=== PATIENT | female | born 1950 | race Caucasian/White ===

== ENCOUNTER 2018-06-26 11:48 | Inpatient (IN) | payer OTHER, MEDICARE ==
[2018-06-26] MEDS ORDERED: ALBUTEROL SULFATE 0.083% NEB 2.5 MG/3 ML AMPUL NEB ONE ×2 (12:18→12:23)
--- NOTE | 2018-06-26 12:25 | ER Document Report ---
ED Respiratory Problem - General Stated Complaint: SHORTNESS OF BREATH Time Seen by Provider: 06/26/18 12:02 Mode of Arrival: Medic Information source: Patient Notes: Patient presents complaining of productive cough with yellow sputum for the past 2 days. Patient does have a history of COPD and reports a worsening of her symptoms. Patient does complain of chest tenderness only with coughing and deep inspiration. Patient denies any fever, nausea or vomiting. Patient does report recent air travel from [place] 3 weeks ago. Patient was evaluated on and given a burst of steroids as well as doxycycline for 10 days. - HPI Patient complains to provider of: COPD, Cough, Short of breath Onset: Other - 2 days Duration: Worse/persistent Quality of pain: Achy Pain Level: 3 Context: Hx COPD, Smoker Chest pain/discomfort: Center Sputum color: Yellow EMS treatments: Bronchodilators, Solumedrol Associated symptoms: Chest pain/discomfort, Cough, Short of breath, Wheezing. denies: Fever Similar symptoms previously: Yes Recently seen / treated by doctor: Yes - Related Data Allergies/Adverse Reactions: Penicillins Allergy (Verified 06/26/18 15:54) Past Medical History - General Information source: Patient - Social History Smoking Status: Current Every Day Smoker Frequency of alcohol use: None Drug Abuse: None Lives with: Family Family History: Reviewed & Not Pertinent - Past Medical History Cardiac Medical History: Reports: Hx Hypertension Pulmonary Medical History: Reports: Hx COPD Past Surgical History: Reports: Hx Section Review of Systems - Review of Systems Constitutional: Recent illness - Recent exacerbation of COPD. denies: Fever EENT: No symptoms reported Cardiovascular: Chest pain Respiratory: Cough, Short of breath, Sputum, Wheezing. denies: Hemoptysis Gastrointestinal: No symptoms reported. denies: Abdominal pain, Nausea, Vomiting Genitourinary: No symptoms reported Female Genitourinary: No symptoms reported Musculoskeletal: No symptoms reported. denies: Back pain Skin: No symptoms reported Hematologic/Lymphatic: No symptoms reported Neurological/Psychological: No symptoms reported Physical Exam - Vital signs Vitals: Resp Pulse Ox 23 H 91 L 06/26/18 12:03 06/26/18 12:03 - General General appearance: Alert In distress: Moderate - HEENT Head: Normocephalic, Atraumatic Eyes: Normal Conjunctiva: Normal Nasal: Normal Mouth/Lips: Normal Mucous membranes: Normal Neck: Normal, Supple. No: Lymphadenopathy - Respiratory Respiratory status: Labored, Tachypnea Chest status: Pain with cough, Pain with deep breathing Breath sounds: Productive cough, Rhonchi, Wheezing Chest palpation: Tender - Cardiovascular Rhythm: Tachycardia Heart sounds: S1 appreciated, S2 appreciated Murmur: No - Abdominal Inspection: Normal Distension: No distension Bowel sounds: Normal Tenderness: Nontender - Back Back: Normal, Nontender. No: CVA tenderness - Extremities General upper extremity: Normal inspection, Normal ROM General lower extremity: Normal inspection, Normal ROM - Neurological Neuro grossly intact: Yes Cognition: Normal Eleno Coma Scale Eye Opening: Spontaneous Eleno Coma Scale Verbal: Oriented Eleno Coma Scale Motor: Obeys Commands Eleno Coma Scale Total: 15 - Psychological Associated symptoms: Normal affect, Normal mood - Skin Skin Temperature: Warm Skin Moisture: Dry Skin Color: Normal Course - Re-evaluation Re-evalutation: 06/26/18 13:57 Patient with decreased effort of breathing although continues with diffuse wheezing bilaterally. Additional nebulizer treatment ordered. Patient tachycardia improved heart rate in the mid 90s with oxygen saturation 93% on 2 L at this time. Chest x-ray report reviewed. Concern for patient with treatment failure given most recent outpatient treatment of doxycycline that she finished just a few days ago. Patient also has too numerous of pills in her medication bottle of her prednisone 20 mg tablets, given the concern for possible missed dosing of her most recent steroid burst dosing that was prescribed on 06/15/2018. Consulted with hospitalist who agrees to accept the patient to [facility] services. - Vital Signs Vital signs: Temp Pulse Resp BP Pulse Ox 98 F 94 24 H 100/71 95 06/26/18 12:37 06/26/18 16:45 06/26/18 16:01 06/26/18 16:00 06/26/18 16:01 - Laboratory Result Diagrams: 06/26/18 12:20 06/26/18 12:20 Laboratory results interpreted by me: 06/26/18 06/26/18 06/26/18 12:20 12:20 12:20 WBC 14.3 H RDW 14.7 H Absolute Neutrophils 10.5 H Absolute Monocytes 1.7 H D-Dimer 0.84 H Sodium 131.7 L Chloride 89 L Carbon Dioxide 31 H Total Bilirubin 1.4 H Direct Bilirubin 0.7 H Total Protein 5.5 L Labs- Entire Visit 06/26/18 06/26/18 06/26/18 12:20 12:20 12:20 WBC 14.3 H RBC 4.37 Hgb 13.2 Hct 39.5 MCV 90 MCH 30.3 MCHC 33.5 RDW 14.7 H Plt Count 317 Seg Neutrophils % 73.7 Lymphocytes % 13.7 Monocytes % 11.9 Eosinophils % 0.4 Basophils % 0.3 Absolute Neutrophils 10.5 H Absolute Lymphocytes 2.0 Absolute Monocytes 1.7 H Absolute Eosinophils 0.1 Absolute Basophils 0.0 PT 12.1 INR 0.85 D-Dimer Carbonic Acid HCO3/H2CO3 Ratio ABG pH ABG pCO2 ABG pO2 ABG HCO3 ABG Total CO2 ABG O2 Saturation ABG Base Excess VBG pH VBG pCO2 VBG HCO3 VBG Base Excess FiO2 Sodium 131.7 L Potassium 4.3 Chloride 89 L Carbon Dioxide 31 H Anion Gap 12 BUN 18 Creatinine 0.87 Est GFR ( Amer) > 60 Est GFR (Non-Af Amer) > 60 Glucose 97 POC Glucose Lactic Acid Calcium 9.5 Magnesium 1.8 Total Bilirubin 1.4 H Direct Bilirubin 0.7 H Neonat Total Bilirubin Not Reportable Neonat Direct Bilirubin Not Reportable Neonat Indirect Bili Not Reportable AST 31 ALT 25 Alkaline Phosphatase 98 Creatine Kinase 66 CK-MB (CK-2) Troponin I Total Protein 5.5 L Albumin 3.6 06/26/18 06/26/18 06/26/18 12:20 12:20 12:20 WBC RBC Hgb Hct MCV MCH MCHC RDW Plt Count Seg Neutrophils % Lymphocytes % Monocytes % Eosinophils % Basophils % Absolute Neutrophils Absolute Lymphocytes Absolute Monocytes Absolute Eosinophils Absolute Basophils PT INR D-Dimer Carbonic Acid HCO3/H2CO3 Ratio ABG pH ABG pCO2 ABG pO2 ABG HCO3 ABG Total CO2 ABG O2 Saturation ABG Base Excess VBG pH 7.39 VBG pCO2 52.2 VBG HCO3 31.0 VBG Base Excess 4.8 FiO2 Sodium Potassium Chloride Carbon Dioxide Anion Gap BUN Creatinine Est GFR ( Amer) Est GFR (Non-Af Amer) Glucose POC Glucose Lactic Acid 1.8 Calcium Magnesium Total Bilirubin Direct Bilirubin Neonat Total Bilirubin Neonat Direct Bilirubin Neonat Indirect Bili AST ALT Alkaline Phosphatase Creatine Kinase CK-MB (CK-2) 2.02 Troponin I < 0.012 Total Protein Albumin 06/26/18 06/26/1806/26/18 12:20 12:47 15:27 WBC RBC Hgb Hct MCV MCH MCHC RDW Plt Count Seg Neutrophils % Lymphocytes % Monocytes % Eosinophils % Basophils % Absolute Neutrophils Absolute Lymphocytes Absolute Monocytes Absolute Eosinophils Absolute Basophils PT INR D-Dimer 0.84 H Carbonic Acid 1.18 HCO3/H2CO3 Ratio 23:1 ABG pH 7.48 H ABG pCO2 39.1 ABG pO2 37.3 L* ABG HCO3 28.2 H ABG Total CO2 29.4 H ABG O2 Saturation 75.1 L ABG Base Excess 4.4 VBG pH VBG pCO2 VBG HCO3 VBG Base Excess FiO2 2 L Sodium Potassium Chloride Carbon Dioxide Anion Gap BUN Creatinine Est GFR ( Amer) Est GFR (Non-Af Amer) Glucose POC Glucose 104 Lactic Acid Calcium Magnesium Total Bilirubin Direct Bilirubin Neonat Total Bilirubin Neonat Direct Bilirubin Neonat Indirect Bili AST ALT Alkaline Phosphatase Creatine Kinase CK-MB (CK-2) Troponin I Total Protein Albumin 06/26/18 06/26/18 17:15 17:20 WBC RBC Hgb Hct MCV MCH MCHC RDW Plt Count Seg Neutrophils % Lymphocytes % Monocytes % Eosinophils % Basophils % Absolute Neutrophils Absolute Lymphocytes Absolute Monocytes Absolute Eosinophils Absolute Basophils PT INR D-Dimer Carbonic Acid 1.31 HCO3/H2CO3 Ratio 21:1 ABG pH 7.43 ABG pCO2 43.5 ABG pO2 102.8 H ABG HCO3 28.0 H ABG Total CO2 29.3 H ABG O2 Saturation 97.8 ABG Base Excess 3.2 VBG pH VBG pCO2 VBG HCO3 VBG Base Excess FiO2 35% Sodium Potassium Chloride Carbon Dioxide Anion Gap BUN Creatinine Est GFR ( Amer) Est GFR (Non-Af Amer) Glucose POC Glucose Lactic Acid Calcium Magnesium Total Bilirubin Direct Bilirubin Neonat Total Bilirubin Neonat Direct Bilirubin Neonat Indirect Bili AST ALT Alkaline Phosphatase Creatine Kinase CK-MB (CK-2) Troponin I < 0.012 Total Protein Albumin - Diagnostic Test Radiology reviewed: Reports reviewed Discharge - Discharge Clinical Impression: COPD exacerbation Pneumonia Qualifiers: Pneumonia type: due to unspecified organism Laterality: right Lung location: lower lobe of lung Qualified Code(s): J18.1 - Lobar pneumonia, unspecified organism Dyspnea Qualifiers: Dyspnea type: unspecified Qualified Code(s): R06.00 - Dyspnea, unspecified Condition: Stable Disposition: ADMITTED OBSERVATION Admitting Provider: Hospitalist Unit Admitted: Medical Floor
[2018-06-26 12:38] LABS: ABSOLUTE EOSINOPHILS # (AUTO) 0.1 10^3/uL (0.0-0.6); ABSOLUTE MONOCYTES (AUTO) 1.7 10^3/uL (0.1-1.4); ABSOLUTE NEUT (AUTO) 10.5 10^3/uL (1.7-8.2); BASOPHILS % (AUTO) 0.3 % (0-2); EOSINOPHILS % (AUTO) 0.4 % (0-6); HEMATOCRIT 39.5 % (36.0-47.0); HEMOGLOBIN 13.2 g/dL (12.0-15.5); LYMPHOCYTES % (AUTO) 13.7 % (13-45); MEAN CORPUSCULAR HEMOGLOBIN 30.3 pg (27.0-33.4); MEAN CORPUSCULAR HGB CONC 33.5 g/dL (32.0-36.0); MEAN CORPUSCULAR VOLUME 90 fl (80-97); MONOCYTES % (AUTO) 11.9 % (3-13); PLATELET COUNT 317 10^3/uL (150-450); RED BLOOD COUNT 4.37 10^6/uL (3.72-5.28); RED CELL DISTRIBUTION WIDTH 14.7 % (11.5-14.0); SEGMENTED NEUTROPHILS % (AUTO) 73.7 % (42-78); TOTAL CELLS COUNTED % (AUTO) 100 %; WHITE BLOOD COUNT 14.3 10^3/uL (4.0-10.5)
[2018-06-26 12:42] LABS: VENOUS BLOOD BASE EXCESS 4.8 mmol/L; VENOUS BLOOD PCO2 52.2 mmHg (35-63); VENOUS BLOOD PH 7.39 (7.30-7.42)
[2018-06-26 12:44] LABS: INTERNATIONAL RATION (INR) 0.85; PROTHROMBIN TIME 12.1 SEC (11.4-15.4)
--- NOTE | 2018-06-26 12:47 | RADIOLOGY REPORT (SQ) ---
EXAM DESCRIPTION: CHEST SINGLE VIEW COMPLETED DATE/TIME: 06/26/2018 12:34 pm REASON FOR STUDY: bed 11 sepsis protocol COMPARISON: None. EXAM PARAMETERS: NUMBER OF VIEWS: One view. TECHNIQUE: Single frontal radiographic view of the chest acquired. RADIATION DOSE: NA LIMITATIONS: None. FINDINGS: LUNGS AND PLEURA: Minimal ill-defined patchy right basilar opacity. No dense consolidatio n. No significant pleural effusion. No pneumothorax. MEDIASTINUM AND HILAR STRUCTURES: No discrete mass. HEART AND VASCULAR STRUCTURES: Ectatic calcified thoracic aorta. Normal heart size. BONES: No acute findings. HARDWARE: None in the chest. OTHER: No other significant finding. IMPRESSION: Minimal patchy right basilar opacities, possibly developing infection. No additional evidence of acute intrathoracic process. TECHNICAL DOCUMENTATION: JOB ID: [id number] [employer]- All Rights Reserved Reading location - IP/workstation name: [email or web address]
[2018-06-26 13:01] LABS: ALANINE AMINOTRANSFERASE 25 U/L (9-52); ALBUMIN 3.6 g/dL (3.5-5.0); ALKALINE PHOSPHATASE 98 U/L (38-126); ANION GAP 12 (5-19); ASPARTATE AMINO TRANSFERASE 31 U/L (14-36); BILIRUBIN,DIRECT 0.7 mg/dL (0.0-0.4); BILIRUBIN,TOTAL 1.4 mg/dL (0.2-1.3); BLOOD UREA NITROGEN 18 mg/dL (7-20); CALCIUM 9.5 mg/dL (8.4-10.2); CARBON DIOXIDE 31 mmol/L (22-30); CHLORIDE 89 mmol/L (98-107); CREATINE KINASE 66 U/L (30-135); GLUCOSE 97 mg/dL (75-110); POTASSIUM 4.3 mmol/L (3.6-5.0); SODIUM 131.7 mmol/L (137-145); TOTAL PROTEIN 5.5 g/dL (6.3-8.2)
--- NOTE | 2018-06-26 13:10 | EKG REPORT ---
SEVERITY:- NORMAL ECG - SINUS RHYTHM : Confirmed by: Becky Mann MD 26-Jun-2018 13:08:43
[2018-06-26 13:13] LABS: CREATINE KINASE MB 2.02 ng/mL (<4.55)
[2018-06-26 13:15] LABS: TROPONIN I < 0.012 ng/mL
[2018-06-26] MEDS ORDERED: LEVOFLOXACIN 750 MG/D5W RTU 750 MG/150 ML RTUPB IV ONE (13:19)
[2018-06-26] MEDS ORDERED: IPRATROPIUM/ALBUTEROL 0.5-2.5 MG/3 ML AMPUL NEB ONE (13:52)
[2018-06-26] MEDS ORDERED: NORMAL SALINE 1000 ML 1,000 ML IV ONE (13:52)
[2018-06-26 16:01] LABS: ARTERIAL BLOOD BASE EXCESS 4.4 mmol/L; ARTERIAL BLOOD FIO2 2 L; ARTERIAL BLOOD H2CO3 1.18 mmol/L (1.05-1.35); ARTERIAL BLOOD HCO3 28.2 mmol/L (20-24); ARTERIAL BLOOD O2 SATURATION 75.1 % (94-98); ARTERIAL BLOOD PCO2 39.1 mmHg (35-45); ARTERIAL BLOOD PH 7.48 (7.35-7.45); ARTERIAL BLOOD TOTAL CO2 29.4 mmol/L (21-25)
[2018-06-26 16:03] LABS: ARTERIAL BLOOD PO2 37.3 mmHg (80-100)
[2018-06-26] MEDS ORDERED: LEVALBUTEROL HCL NEB 1.25 MG/3 ML AMPUL NEB PRN (16:03)
[2018-06-26] MEDS ORDERED: ACETAMINOPHEN 325 MG TABLET PO PRN (16:03)
[2018-06-26] MEDS: LORAZEPAM INJ 2 MG/1 ML VIAL IV PRN (16:38)
[2018-06-26] MEDS ORDERED: NICOTINE 14 MG/24 HR PATCH.TD24 TD PRN (17:33)
--- NOTE | 2018-06-26 17:35 | PDOC H&P ---
History of Present Illness Admission Date/PCP: 06/26/18 14:14 Patient complains of: shortness of breath, chest pain History of Present Illness: MITCHEL LANZA is a 67 year old female with a past medical history significant for hypertension, depression/anxiety, arthritis, and COPD who presented to the emergency department today with a complaint of 2 weeks of progressively worsening dyspnea. She reports that she saw an urgent care 1 week ago and was placed on doxycycline and prednisone. She has completed the course of therapy but has dramatically worsened in the last 48 hours. She now reports chest wall pain associated with deep breath, nonproductive cough, fatigue, air hunger/anxiety, and dyspnea while at rest. Evaluation in the emergency department found tachycardia (HR 110-120), tachypnea (RR 28), Sp02 91% on RA, accessory muscle use, tripoding, leukocytosis (WBC 14.3), normal troponin, EKG demonstrating NSR, CXR demonstrated RLL infiltrate. The patient was referred to the hospitalist service for admission and management of acute respiratory failure secondary to COPD exacerbation. Past Medical History Cardiac Medical History: Reports: Hypertension Pulmonary Medical History: Reports: Chronic Obstructive Pulmonary Disease (COPD) Denies: Intubation EENT Medical History: Reports: None Neurological Medical History: Reports: None Endocrine Medical History: Reports: None Renal/ Medical History: Reports: None Malignancy Medical History: Reports: None GI Medical History: Reports: None Musculoskeltal Medical History: Reports: Arthritis Skin Medical History: Reports: None Psychiatric Medical History: Reports: Depression, General Anxiety Disorder Traumatic Medical History: Reports: None Hematology: Reports: None Infectious Medical History: Reports: None Past Surgical History Past Surgical History: Reports: Section Social History Information Source: Patient Lives with: Friend Smoking Status: Current Some Day Smoker Cigarettes Packs Per Day: 0.5 Number of Years Smokin Frequency of Alcohol Use: Occasional Hx Recreational Drug Use: No Drugs: None Hx Prescription Drug Abuse: No - Advance Directive Resuscitation Status: Do Not Intubate Family History Family History: Reviewed & Not Pertinent Parental Family History Reviewed: Yes Children Family History Reviewed: Yes Sibling(s) Family History Reviewed.: Yes Medication/Allergy Home Medications: Albuterol Sulfate [Proair Hfa Inhalation Aerosol 8.5 gm Mdi] 1 puff IH Q4HP PRN 06/26/18 Amlodipine Besylate [Norvasc 5 mg Tablet] 5 mg PO DAILY 06/26/18 Aspirin [Ecotrin 81 mg EC Tablet] 81 mg PO DAILY 06/26/18 Budesonide/Formoterol Fumarate [Symbicort Hfa 160-4.5 Mcg Inhaler 6 gm] 1 puff IH Q12 06/26/18 Gabapentin [Neurontin 300 mg Capsule] 300 mg PO Q8 06/26/18 Melatonin [Melatonin 5 mg Tablet] 10 mg PO QHS 06/26/18 Meloxicam [Mobic] 7.5 mg PO DAILY 06/26/18 Prednisone [Deltasone 20 mg Tablet] 40 mg PO DAILY 06/26/18 Venlafaxine HCl ER [Effexor Xr 37.5 mg Cap.sr] 37.5 mg PO DAILY 06/26/18 Allergies/Adverse Reactions: Penicillins Allergy (Verified 06/26/18 15:54) Review of Systems Constitutional: PRESENT: fatigue, other - Myalgia. ABSENT: chills, fever(s), headache(s), weight gain, weight loss Eyes: ABSENT: visual disturbances Ears: ABSENT: hearing changes Cardiovascular: PRESENT: chest pain, dyspnea on exertion. ABSENT: edema, orthropnea, palpitations Respiratory: PRESENT: dyspnea. ABSENT: cough, hemoptysis Gastrointestinal: ABSENT: abdominal pain, constipation, diarrhea, hematemesis, hematochezia, nausea, vomiting Genitourinary: ABSENT: dysuria, hematuria Musculoskeletal: ABSENT: joint swelling Integumentary: ABSENT: rash, wounds Neurological: ABSENT: abnormal gait, abnormal speech, confusion, dizziness, focal weakness, syncope Psychiatric: ABSENT: anxiety, depression, homidical ideation, suicidal ideation Endocrine: ABSENT: cold intolerance, heat intolerance, polydipsia, polyuria Hematologic/Lymphatic: ABSENT: easy bleeding, easy bruising Physical Exam Vital Signs: Temp Pulse Resp BP Pulse Ox 98 F 24 H 100/71 95 06/26/18 12:37 06/26/18 16:01 06/26/18 16:00 06/26/18 16:01 Intake & Output 06/25/18 06/26/18 06/27/18 06:59 06:59 06:59 Intake Total 1150 Balance 1150 General appearance: PRESENT: mild distress, well-developed, well-nourished Head exam: PRESENT: atraumatic, normocephalic Eye exam: PRESENT: conjunctiva pink, EOMI, PERRLA. ABSENT: scleral icterus Ear exam: PRESENT: normal external ear exam Mouth exam: PRESENT: moist, tongue midline Teeth exam: PRESENT: edentulous - Dentures Neck exam: ABSENT: carotid bruit, JVD, lymphadenopathy, thyromegaly Respiratory exam: PRESENT: accessory muscle use, decreased breath sounds - Throughout, prolonged expiratory phas, rhonchi, tachypnea, wheezes. ABSENT: rales Cardiovascular exam: PRESENT: RRR, tachycardia. ABSENT: diastolic murmur, rubs , systolic murmur Pulses: PRESENT: normal dorsalis pedis pul Vascular exam: PRESENT: normal capillary refill GI/Abdominal exam: PRESENT: normal bowel sounds, soft. ABSENT: distended, guarding, mass, organolmegaly, rebound, tenderness Rectal exam: PRESENT: deferred Extremities exam: PRESENT: full ROM. ABSENT: calf tenderness, clubbing, pedal edema Neurological exam: PRESENT: alert, awake, oriented to person, oriented to place , oriented to time, oriented to situation, CN II-XII grossly intact. ABSENT: motor sensory deficit Psychiatric exam: PRESENT: anxious, appropriate affect, normal mood. ABSENT: homicidal ideation, suicidal ideation Skin exam: PRESENT: dry, intact, warm. ABSENT: cyanosis, rash Results Laboratory Results: 06/26/18 15:27 Carbonic Acid 1.18 HCO3/H2CO3 Ratio 23:1 ABG pH 7.48 H ABG pCO2 39.1 ABG pO2 37.3 L* ABG HCO3 28.2 H ABG O2 Saturation 75.1 L ABG Base Excess 4.4 FiO2 2 L Impressions: Chest X-Ray 06/26/18 11:56 IMPRESSION: Minimal patchy right basilar opacities, possibly developing infection. No additional evidence of acute intrathoracic process. Assessment & Plan - Diagnosis (1) Acute respiratory failure with hypoxia Is this a current diagnosis for this admission?: Yes Plan: The patient presented with acute respiratory failure with hypoxia; found to have SPO2 of 91% on room air. She is not typically home O2 dependent. ABG while on supplemental oxygen is worrisome for respiratory alkalosis with significant hypoxia; PaO2 37.3. CXR demonstrates a RLL infiltrate. D-dimer is elevated. Influenza pending. Blood and sputum cultures are pending. CTA of the chest is pending. We will trend troponins. The patient is admitted to telemetry. She is provided supplemental oxygen as needed to maintain oxygen saturations. Spoke with nursing, to place BiPAP now and repeat ABG after 45 minutes. She is provided scheduled and as needed nebulizer treatments. IV Solu-Medrol. Mucinex twice daily. Placed on IV Cipro as she has failed outpatient doxycycline. Flutter valve to bedside. (2) Atypical chest pain Is this a current diagnosis for this admission?: Yes Plan: Pleurisy secondary to increased work of breathing/cough versus pulmonary embolus versus ACS. The patient reports chest "heaviness" that worsens with deep breath and inspiration. She states that the discomfort has been present for 2-3 days. No alleviating factors. She denies cardiac history, risk factors include age, weight, hypertension, tobacco dependence. Initial troponin is negative. EKG demonstrated sinus rhythm without acute changes. D-dimer is elevated. CT of the chest is pending. We will trend troponins. Analgesics as needed. (3) D-dimer, elevated Is this a current diagnosis for this admission?: Yes Plan: D-dimer elevated 0.84 Of note, [place] 2 [place] ago. She began having symptoms 10 days ago of shortness of breath with activity that have progressively worsened. No peripheral/dependent edema. Will obtain CTA of the chest rule out PE. (4) Tobacco abuse Is this a current diagnosis for this admission?: Yes Plan: Smoking cessation is encouraged. Nicotine replacement therapies are provided. (5) COPD exacerbation Is this a current diagnosis for this admission?: Yes Plan: Plan as above. (6) Pneumonia Qualifiers: Pneumonia type: due to unspecified organism Laterality: right Lung location: lower lobe of lung Qualified Code(s): J18.1 - Lobar pneumonia, unspecified organism Is this a current diagnosis for this admission?: Yes Plan: Blood and sputum cultures are pending. Influenza is pending. She is placed on IV Cipro as she has just completed an outpatient course of doxycycline. - Time Time Spent: 50 to 70 Minutes Medications reviewed and adjusted accordingly: Yes Anticipated discharge: Home
[2018-06-26 17:40] LABS: ARTERIAL BLOOD BASE EXCESS 3.2 mmol/L; ARTERIAL BLOOD H2CO3 1.31 mmol/L (1.05-1.35); ARTERIAL BLOOD O2 SATURATION 97.8 % (94-98); ARTERIAL BLOOD PCO2 43.5 mmHg (35-45); ARTERIAL BLOOD PH 7.43 (7.35-7.45); ARTERIAL BLOOD PO2 102.8 mmHg (80-100); ARTERIAL BLOOD TOTAL CO2 29.3 mmol/L (21-25)
[2018-06-26 17:41] LABS: ARTERIAL BLOOD FIO2 35%
--- NOTE | 2018-06-26 22:05 | RADIOLOGY REPORT (SQ) ---
EXAM DESCRIPTION: CT CHEST ANGIOGRAPHY WITHOUT THEN WITH IV CONTRAST COMPLETED DATE/TME: 06/26/2018 00:00 CLINICAL HISTORY: 67 years, Female, hypoxia, tachypnea, tachycardia ? PE COMPARISON: None. TECHNIQUE: 547 Images stored on PACS. All CT scanners at this facility use dose modulation, iterative reconstruction, and/or weight based dosing when appropriate to reduce radiation dose to as low as reasonably achievable (ALARA). Axial images were obtained with coronal and sagittal MIPS reconstructions performed on a dedicated workstation. [facility]: Dose Right [facility]: CareDose [facility]: Dose Right [facility]: Teradose 4D [facility]: B[employer]Good LIMITATIONS: None. FINDINGS: Suboptimal contrast bolus limits the exam. Suboptimal opacification of distal arterial branches. However as visualized no intraluminal filling defect to suggest pulmonary embolus. Negative for thoracic aortic aneurysm or dissection. No mediastinal or hilar adenopathy. Mild atheromatous change and ectasia of the thoracic aorta. Maximal diameter of the ascending thoracic aorta is 3.8 cm AP by 3.8 cm transverse, at the level of the pulmonary trunk. Coronary artery calcifications are present. The heart and pericardium are otherwise unremarkable. Post surgical changes in the upper abdomen with LAP-BAND of the stomach. Subcentimeter hypodensity in the liver, likely tiny cyst or hemangioma in the absence of cancer history. Subcentimeter left renal cyst also noted. Osseous structures are grossly intact. No pneumothorax. The visualized airways are patent. There are patchy groundglass opacities bilaterally as well as nodular/reticulonodular changes. The largest nodular component in the left upper lobe measures 4.8 mm. This has a predominantly groundglass appearance. No effusion. IMPRESSION: Negative for pulmonary embolus, thoracic aortic aneurysm, or dissection. Groundglass opacities bilaterally with nodular/reticulonodular changes suggestive of bilateral pneumonitis. Recommend follow-up to ensure resolution. Please refer to below Fleischner Society criteria for further evaluation of the nodular component. Atheromatous change and ectasia of the ascending thoracic aorta. Coronary artery calcification. Probable hepatic cyst/hemangioma. Partial visualization of a left renal cyst. 2017 Fleischner Society Recommendations for Multiple Solid Lung Nodules Follow-Up base on size (average of long- and short-axis diameters). Use most suspicious nodule for followup. Nodule Size <6 mm Low-Risk Patient: No routine follow-up Nodule Size <6 mm High-Risk Patient: Optional CT at 12 months Nodule Size 6-8 mm Low-Risk Patient: CT at 3-[address] at 18-24 months Nodule Size 6-8 mm High-Risk Patient: CT at 3-6 months then at 18-24 months Nodule Size (mm) >8 Low-Risk Patient: CT at 3-6 months, then consider CT at 18-24 months Nodule Size (mm) >8 High-Risk Patient: CT at 3-6 months, then at 18-24 months TECHNICAL DOCUMENTATION: Quality ID # [id number]: Final reports with documentation of one or more dose reduction techniques (e.g., Automated exposure control, adjustment of the mA and/or kV according to patient size, use of iterative reconstruction technique) copyright 2011 [employer]- All Rights Reserved
[2018-06-26] MEDS: GABAPENTIN 300 MG CAPSULE PO SCH (22:09)
[2018-06-26] MEDS: MELATONIN 5 MG TABLET PO SCH (22:09)
[2018-06-26] MEDS: CIPROFLOXACIN 400 MG/D5W RTU 400 MG/200 ML RTUPB IV SCH (22:09)
[2018-06-26] MEDS: FAMOTIDINE 20 MG TABLET PO SCH (22:09)
[2018-06-26] MEDS: METHYLPREDNISOLONE INJ 40 MG/1 ML SDV IV SCH (22:09)
[2018-06-26] MEDS: GUAIFENESIN 600 MG TABLET.SA PO SCH (22:09)
[2018-06-26] MEDS: HEPARIN SOD (PORCINE) 5,000 UNIT/ML 1 ML SYRINGE SUBCUT SCH (22:10)
[2018-06-26 22:41] LABS: APPEARANCE,URINE CLEAR; BILIRUBIN,URINE NEGATIVE (NEGATIVE); COLOR,URINE YELLOW; GLUCOSE, URINE NEGATIVE (NEGATIVE); KETONES,URINE NEGATIVE (NEGATIVE); LEUKOCYTE ESTERASE,URINE NEGATIVE (NEGATIVE); NITRITE,URINE NEGATIVE (NEGATIVE); PROTEIN,URINE NEGATIVE (NEGATIVE); UROBILINOGEN,URINE NEGATIVE mg/dL (<2.0)
[2018-06-26 22:57] LABS: A TYPE INFLUENZA AG NEGATIVE (NEGATIVE); B INFLUENZA AG NEGATIVE (NEGATIVE)
[2018-06-27] MEDS: IPRATROPIUM/ALBUTEROL 0.5-2.5 MG/3 ML AMPUL NEB SCH ×3 (00:28→15:44)
[2018-06-27] MEDS: GABAPENTIN 300 MG CAPSULE PO SCH ×3 (05:35→21:17)
[2018-06-27] MEDS: METHYLPREDNISOLONE INJ 40 MG/1 ML SDV IV SCH ×3 (05:35→21:18)
[2018-06-27] MEDS: HEPARIN SOD (PORCINE) 5,000 UNIT/ML 1 ML SYRINGE SUBCUT SCH ×3 (05:35→21:18)
[2018-06-27 06:30] LABS: ABSOLUTE LYMPHOCYTES (AUTO) 0.7 10^3/uL (0.5-4.7); ABSOLUTE MONOCYTES (AUTO) 0.4 10^3/uL (0.1-1.4); ABSOLUTE NEUT (AUTO) 9.2 10^3/uL (1.7-8.2); BASOPHILS % (AUTO) 0.4 % (0-2); HEMATOCRIT 35.9 % (36.0-47.0); HEMOGLOBIN 12.2 g/dL (12.0-15.5); LYMPHOCYTES % (AUTO) 6.5 % (13-45); MEAN CORPUSCULAR HEMOGLOBIN 30.6 pg (27.0-33.4); MEAN CORPUSCULAR HGB CONC 34.1 g/dL (32.0-36.0); MEAN CORPUSCULAR VOLUME 90 fl (80-97); MONOCYTES % (AUTO) 3.9 % (3-13); PLATELET COUNT 284 10^3/uL (150-450); RED BLOOD COUNT 3.99 10^6/uL (3.72-5.28); RED CELL DISTRIBUTION WIDTH 14.8 % (11.5-14.0); SEGMENTED NEUTROPHILS % (AUTO) 89.2 % (42-78); TOTAL CELLS COUNTED % (AUTO) 100 %; WHITE BLOOD COUNT 10.3 10^3/uL (4.0-10.5)
[2018-06-27 06:53] LABS: ANION GAP 11 (5-19); BLOOD UREA NITROGEN 22 mg/dL (7-20); CALCIUM 9.5 mg/dL (8.4-10.2); CARBON DIOXIDE 26 mmol/L (22-30); CHLORIDE 94 mmol/L (98-107); GLUCOSE 136 mg/dL (75-110); POTASSIUM 4.7 mmol/L (3.6-5.0); SODIUM 131.1 mmol/L (137-145)
[2018-06-27] MEDS: ASPIRIN 81 MG TABLET, ENT COATED PO SCH (09:29)
[2018-06-27] MEDS: CIPROFLOXACIN 400 MG/D5W RTU 400 MG/200 ML RTUPB IV SCH ×2 (09:29→21:17)
[2018-06-27] MEDS: MELOXICAM 7.5 MG TABLET PO SCH (09:30)
[2018-06-27] MEDS: GUAIFENESIN 600 MG TABLET.SA PO SCH ×2 (09:30→21:17)
[2018-06-27] MEDS: FAMOTIDINE 20 MG TABLET PO SCH ×2 (09:30→21:17)
[2018-06-27] MEDS: VENLAFAXINE HCL 37.5 MG CAP.SR.24H PO SCH (09:30)
[2018-06-27] MEDS: AMLODIPINE BESYLATE 5 MG TABLET PO SCH (09:30)
[2018-06-27] MEDS: LORAZEPAM INJ 2 MG/1 ML VIAL IV PRN ×2 (09:30→21:33)
--- NOTE | 2018-06-27 14:08 | PROGRESS NOTE E ---
Progress Note NAME: MITCHEL LANZA : 1950 AGE: 67Y DATE: 06/27/2018 ROOM: 534 SUBJECTIVE: Patient is currently sitting on the side of the bed. She states she feels okay today. Patient does have some conversational dyspnea. The patient did require BiPAP this morning because she stated that she just felt she could not catch her breath. Patient is currently on 2.5 liters and oxygenating at 92% on that. The patient denies any nausea, vomiting, no dizziness, chest pain, no fevers, chills. The patient has been afebrile. Blood pressures in good range. Patient did not voice any other concerns. REVIEW OF SYSTEMS: The rest of the review of systems is negative. MEDICATIONS: Reviewed. OBJECTIVE: GENERAL: The patient is a 67-year-old female who is awake, alert. She is oriented to person, place, time and situation. She is verbal and conversational. In no acute distress. VITAL SIGNS: Temperature is 98.0, pulse 72, respirations 24, blood pressure 151/84. Oxygen saturation is 96% on room air. SKIN: Warm, dry. No rashes. Not diaphoretic. HEENT: Pupils reactive. No evidence of JVP. CVS: Heart is regular. No rub. CHEST: Patient does have bilateral expiratory wheezes, especially in the upper lung gary. Overall diminished throughout. Prolonged expiratory phase. ABDOMEN: Soft, nontender. EXTREMITIES: No clubbing, cyanosis or edema. PSYCHIATRIC: Appropriate affect. Pleasant mood. DIAGNOSTICS: Lab values are as follows: Hematology obtained on 06/27/2018: WBCs are 10.3, hemoglobin is 12.2, hematocrit is 35.9, platelet count is 284,000. Chemistry obtained on 06/27/2018: Sodium is 131, potassium 4.7, chloride is 94, carbon dioxide is 26, BUN 22, creatinine 0.8, glucose 136. Calcium is 9.5. IMPRESSION AND PLAN: 1. CHRONIC OBSTRUCTIVE PULMONARY DISEASE EXACERBATION. Will continue steroids. The patient has made some improvement. She is unable to tolerate nasal cannula but still has conversational dyspnea. We will follow. 2. ACUTE ON CHRONIC HYPOXEMIC RESPIRATORY FAILURE. We will continue supplemental O2. 3. TOBACCO DEPENDENCE, CONTINUOUS. Spent 3 minutes discussing smoking cessation and education. Patient declines any pharmacological intervention at this time. 4. ATYPICAL CHEST PAIN. The patient has had 3 sets of cardiac enzymes and this has resolved with bronchodilators. DISPOSITION: The patient is a DO NOT INTUBATE. Pending patient's symptomatology and diagnostic findings, will reevaluate in the a.m. Time spent on this followup, including assessment, plan, physical examination, patient education and review of records is 20minutes. DICTATING PHYSICIAN: JAXON MEDLEY NP [id number] PHY#: [id number] ID: [id number] JOB#: [id number] ACCT: [id number] cc: >
[2018-06-27] MEDS ORDERED: LORAZEPAM INJ 2 MG/1 ML VIAL IV ONE (15:20)
[2018-06-27] MEDS: MELATONIN 5 MG TABLET PO SCH (21:17)
[2018-06-27] MEDS: BUDESONIDE/FORMOTEROL 160-4.5 MCG 60 PUFF/6 GM MDI IH SCH (21:17)
[2018-06-28] MEDS: IPRATROPIUM/ALBUTEROL 0.5-2.5 MG/3 ML AMPUL NEB SCH ×4 (00:08→23:48)
[2018-06-28] MEDS: GABAPENTIN 300 MG CAPSULE PO SCH ×3 (05:03→21:01)
[2018-06-28] MEDS: METHYLPREDNISOLONE INJ 40 MG/1 ML SDV IV SCH (05:03)
[2018-06-28] MEDS: HEPARIN SOD (PORCINE) 5,000 UNIT/ML 1 ML SYRINGE SUBCUT SCH ×3 (05:03→21:01)
[2018-06-28] MEDS: LORAZEPAM INJ 2 MG/1 ML VIAL IV PRN ×3 (05:04→23:58)
[2018-06-28] MEDS ORDERED: MONTELUKAST SODIUM 10 MG TABLET PO ONE (08:23)
[2018-06-28] MEDS: GUAIFENESIN 600 MG TABLET.SA PO SCH ×2 (09:43→21:01)
[2018-06-28] MEDS: PREDNISONE 20 MG TABLET PO SCH ×2 (09:44→17:08)
[2018-06-28] MEDS: BUSPIRONE HCL 10 MG TABLET PO SCH ×2 (09:45→21:02)
[2018-06-28] MEDS: AMLODIPINE BESYLATE 5 MG TABLET PO SCH (09:45)
[2018-06-28] MEDS: ASPIRIN 81 MG TABLET, ENT COATED PO SCH (09:46)
[2018-06-28] MEDS: FAMOTIDINE 20 MG TABLET PO SCH ×2 (09:46→21:02)
[2018-06-28] MEDS: MELOXICAM 7.5 MG TABLET PO SCH (09:46)
[2018-06-28] MEDS: VENLAFAXINE HCL 37.5 MG CAP.SR.24H PO SCH (09:46)
[2018-06-28] MEDS: BUDESONIDE/FORMOTEROL 160-4.5 MCG 60 PUFF/6 GM MDI IH SCH ×2 (09:46→21:01)
[2018-06-28] MEDS: DOXYCYCLINE HYCLATE 100 MG TABLET PO SCH ×2 (09:47→21:02)
[2018-06-28] MEDS ORDERED: BUSPIRONE HCL 10 MG TABLET PO SCH (10:00)
--- NOTE | 2018-06-28 13:17 | PROGRESS NOTE E ---
Progress Note NAME: MITCHEL LANZA : 1950 AGE: 67Y DATE: 06/28/2018 ROOM: 534 SUBJECTIVE: The patient is lying in bed. The patient was found to be dyspneic this morning. The patient states that this is more anxiety than her not being able to breathe. The patient has had a strong cough and has been able to produce some sputum. The patient has not been using her flutter valve. The patient denies any nausea, vomiting, diarrhea. No dizziness, chest pain. No fevers, no chills. Patient has been afebrile. Blood pressure has been in good range, and the patient does not voice any other concerns at this time. REVIEW OF SYSTEMS: The rest of the review of systems is negative. MEDICATIONS: Reviewed. OBJECTIVE: GENERAL: The patient is a 67-year-old female, who is awake, alert and oriented to person, place, time and situation. She is verbal and conversational. Does not appear to be distressed. VITAL SIGNS: Temperature is 98.4, pulse 87, respirations 19, blood pressure is 133/60, oxygen saturation is 98% on 30% FiO2 on BiPAP. SKIN: Warm and dry. No rash. Not diaphoretic. HEENT: Her pupils are reactive. Conjunctivae pink. There is no evidence of JVP. CVS: Heart is regular, no rub. CHEST: Patient does have some rhonchorous lung sounds in left lung field. Expiratory wheezes noted throughout. ABDOMEN: Soft, nontender. EXTREMITIES: There is no clubbing, cyanosis or edema. PSYCHIATRIC: The patient appears extremely anxious. DIAGNOSTICS: Lab values are as follows: Hematology obtained on 06/27/2018: WBC 10.3, hemoglobin is 12.4, hematocrit 35.9, platelet count is 284,000. Chemistry obtained on 06/27/2018: Sodium is 131, potassium 4.7, chloride is 94, carbon dioxide 26, BUN 22, creatinine is 0.8, glucose 136, calcium is 9.5. IMPRESSION AND PLAN: 1. CHRONIC OBSTRUCTIVE PULMONARY DISEASE EXACERBATION. Will continue with steroids. The patient is actually requiring BiPAP. Still has some conversational dyspnea. Will follow. 2. ACUTE ON CHRONIC HYPOXEMIC RESPIRATORY FAILURE. Will continue supplemental O2. Patient did need the BiPAP overnight. 3. TOBACCO DEPENDENCY, CONTINUOUS. Continue p.r.n. nicotine patch. 4. ATYPICAL CHEST PAIN. Resolved. Three sets of negative enzymes. Continue bronchodilators. 5. ANXIETY. The patient has significant anxiety, most likely associated with her underlying baseline of PITA, as well as situational, given the recent of her son. The patient does currently take Effexor, which can make this a little worse; however, the patient overall likes Effexor. Will add BuSpar and monitor. DISPOSITION: The patient is a DO NOT INTUBATE. Pending patient's symptomatology and diagnostic findings, will reevaluate in the a.m. Time spent on this followup, including assessment, plan, physical examination, patient education and review of records, was 25 minutes. DICTATING PHYSICIAN: JAXON MEDLEY NP [id number] PHY#: [id number] ID: [id number] JOB#: [id number] ACCT: [id number] cc: >
[2018-06-28] MEDS: MELATONIN 5 MG TABLET PO SCH (21:02)
[2018-06-28] MEDS: MONTELUKAST SODIUM 10 MG TABLET PO SCH (21:06)
[2018-06-29] MEDS: HEPARIN SOD (PORCINE) 5,000 UNIT/ML 1 ML SYRINGE SUBCUT SCH ×2 (05:56→14:16)
[2018-06-29] MEDS: GABAPENTIN 300 MG CAPSULE PO SCH ×2 (05:56→14:17)
[2018-06-29] MEDS: LORAZEPAM INJ 2 MG/1 ML VIAL IV PRN ×2 (05:58→11:58)
[2018-06-29] MEDS: IPRATROPIUM/ALBUTEROL 0.5-2.5 MG/3 ML AMPUL NEB SCH ×3 (08:17→23:52)
[2018-06-29] MEDS: VENLAFAXINE HCL 37.5 MG CAP.SR.24H PO SCH (10:03)
[2018-06-29] MEDS: PREDNISONE 20 MG TABLET PO SCH ×2 (10:03→18:00)
[2018-06-29] MEDS: MELOXICAM 7.5 MG TABLET PO SCH (10:03)
[2018-06-29] MEDS: DOXYCYCLINE HYCLATE 100 MG TABLET PO SCH (10:04)
[2018-06-29] MEDS: ASPIRIN 81 MG TABLET, ENT COATED PO SCH (10:04)
[2018-06-29] MEDS: GUAIFENESIN 600 MG TABLET.SA PO SCH (10:04)
[2018-06-29] MEDS: BUDESONIDE/FORMOTEROL 160-4.5 MCG 60 PUFF/6 GM MDI IH SCH (10:05)
[2018-06-29] MEDS: AMLODIPINE BESYLATE 5 MG TABLET PO SCH (10:05)
[2018-06-29] MEDS: BUSPIRONE HCL 10 MG TABLET PO SCH (10:05)
[2018-06-29] MEDS: FAMOTIDINE 20 MG TABLET PO SCH (10:05)
[2018-06-29 11:42] LABS: HEMATOCRIT 35.2 % (36.0-47.0); HEMOGLOBIN 11.9 g/dL (12.0-15.5); MEAN CORPUSCULAR HEMOGLOBIN 30.4 pg (27.0-33.4); MEAN CORPUSCULAR HGB CONC 33.9 g/dL (32.0-36.0); MEAN CORPUSCULAR VOLUME 90 fl (80-97); PLATELET COUNT 313 10^3/uL (150-450); RED BLOOD COUNT 3.93 10^6/uL (3.72-5.28); RED CELL DISTRIBUTION WIDTH 14.6 % (11.5-14.0); WHITE BLOOD COUNT 12.4 10^3/uL (4.0-10.5)
--- NOTE | 2018-06-29 11:52 | RADIOLOGY REPORT (SQ) ---
EXAM DESCRIPTION: CHEST SINGLE VIEW COMPLETED DATE/TIME: 06/29/2018 11:00 am REASON FOR STUDY: Hypoxia, tachypnea COMPARISON: None. EXAM PARAMETERS: NUMBER OF VIEWS: One view. TECHNIQUE: Single frontal radiographic view of the chest acquired. RADIATION DOSE: NA LIMITATIONS: None. FINDINGS: LUNGS AND PLEURA: No opacities, masses or pneumothorax. No pleural effusion. MEDIASTINUM AND HILAR STRUCTURES: No masses. Contour normal. HEART AND VASCULAR STRUCTURES: Heart normal in size. Normal vasculature. BONES: No acute findings. HARDWARE: None in the chest. OTHER: No other significant finding. IMPRESSION: NO ACUTE RADIOGRAPHIC FINDING IN THE CHEST. TECHNICAL DOCUMENTATION: JOB ID: [id number] [employer]- All Rights Reserved Reading location - IP/workstation name: [email or web address]
[2018-06-29] MEDS: TRAMADOL HCL 50 MG TABLET PO PRN (11:59)
[2018-06-29] MEDS ORDERED: CEFAZOLIN 2 GM/D5W RTU 2 GM/50 ML RTUPB IV SCH (12:00)
[2018-06-29 12:02] LABS: ALANINE AMINOTRANSFERASE 17 U/L (9-52); ALBUMIN 3.2 g/dL (3.5-5.0); ALKALINE PHOSPHATASE 62 U/L (38-126); ANION GAP 10 (5-19); ASPARTATE AMINO TRANSFERASE 25 U/L (14-36); BILIRUBIN,DIRECT 0.4 mg/dL (0.0-0.4); BILIRUBIN,TOTAL 0.4 mg/dL (0.2-1.3); BLOOD UREA NITROGEN 33 mg/dL (7-20); CALCIUM 9.3 mg/dL (8.4-10.2); CARBON DIOXIDE 30 mmol/L (22-30); CHLORIDE 91 mmol/L (98-107); GLUCOSE 105 mg/dL (75-110); POTASSIUM 5.1 mmol/L (3.6-5.0); TOTAL PROTEIN 5.5 g/dL (6.3-8.2)
[2018-06-29] MEDS: CEFEPIME 2 GM/D5W RTU 2 GM/50 ML RTUPB IV SCH (13:00)
[2018-06-29 19:11] LABS: ARTERIAL BLOOD BASE EXCESS 5.1 mmol/L; ARTERIAL BLOOD H2CO3 2.09 mmol/L (1.05-1.35); ARTERIAL BLOOD HCO3 33.6 mmol/L (20-24); ARTERIAL BLOOD O2 SATURATION 96.1 % (94-98); ARTERIAL BLOOD PO2 93.1 mmHg (80-100); ARTERIAL BLOOD TOTAL CO2 35.8 mmol/L (21-25)
--- NOTE | 2018-06-29 19:18 | XCELERA REPORT ---
[address] [address] Transthoracic Echocardiogram Report Name: MITCHEL LANZA Age: 67 yrs Gender: Female : 1950 Patient Status: In[facility] Date: 06/29/2018 02:33 PM Height: 64 in Weight: 169 lb BSA: 1.8 m2 Procedure: A two-dimensional transthoracic echocardiogram with color flow and Doppler was performed. The study was technically difficult with many images being suboptimal in quality. Reason For Study: Dyspnea, chest pain, recent loss History: Dyspnea, chest pain,. Ordering Physician: JAXON MEDLEY Performed By: Sergio Gorman Interpretation Summary The left ventricle is normal in size. There is normal left ventricular wall thickness. LV EF is 65% Left ventricular systolic function is normal. LV diastolic function not assessed. The left ventricular wall motion is normal. There is no thrombus. There is no ventricular septal defect visualized. The right ventricle is normal in size and function. The right atrium is normal. The left atrial size is normal. The interatrial septum is intact with no evidence for an atrial septal defect. There is no Doppler evidence for an interatrial shunt There is no evidence of mitral valve prolapse. There is no vegetation seen on the mitral valve. There is no mitral valve stenosis. There is a trace to mild amount of mitral regurgitation There is no aortic valvular vegetation. There is mild aortic stenosis There is a peak gradient of 19 mm of Hg. There is no LVOT obstruction. No hemodynamically significant valvular aortic stenosis. No aortic regurgitation is present. There is no tricuspid stenosis. There is a moderate amount of tricuspid regurgitation There is moderate to severe pulmonary hypertension by echo RVSP is 59 to 64 mm of Hg , with RA mean of 5 to 10. There is no pulmonic valvular stenosis. There is no pulmonic valvular regurgitation. The aortic root is not well visualized but is probably normal size. The inferior vena cava appeared normal and decreased > 50% with respiration (RAP 5-10 mmHg) There is no pericardial effusion. MMode/2D Measurements & Calculations RVDd: 2.5 cm LVIDd: 4.9 cm FS: 27.5 % Ao root diam: 2.7 cm IVSd: 0.80 cm LVIDs: 3.6 cm EDV(Teich): 113.4 ml Ao root area: 5.9 cm2 LVPWd: 0.95 cm ESV(Teich): 53.0 ml LA dimension: 3.8 cm EF(Teich): 53.2 % Doppler Measurements & Calculations MV E max robbie: MV P1/2t max robbie: Ao V2 max: LV V1 max P.0 cm/sec 88.1 cm/sec 216.3 cm/sec 6.1 mmHg MV A max robbie: MV P1/2t: 87.1 msec Ao max PG: LV V1 max: 99.3 cm/sec MVA(P1/2t): 2.5 cm2 18.7 mmHg 123.4 cm/sec MV E/A: 1.0 MV dec slope: 296.2 cm/sec2 MV dec time: 0.18 sec PA V2 max: TR max robbie: MV P1/2t-pr_phl: 160.4 cm/sec 364.9 cm/sec 87.1 msec PA max PG: TR max P.2 mmHg 10.3 mmHg Left Ventricle The left ventricle is normal in size. There is normal left ventricular wall thickness. LV EF is 65%. Left ventricular systolic function is normal. LV diastolic function not assessed. The left ventricular wall motion is normal. There is no thrombus. There is no ventricular septal defect visualized. Right Ventricle The right ventricle is normal in size and function. Atria The right atrium is normal. The left atrial size is normal. The interatrial septum is intact with no evidence for an atrial septal defect. There is no Doppler evidence for an interatrial shunt. Mitral Valve There is no evidence of mitral valve prolapse. There is no vegetation seen on the mitral valve. There is no mitral valve stenosis. There is a trace to mild amount of mitral regurgitation. Aortic Valve There is no aortic valvular vegetation. There is mild aortic stenosis. There is a peak gradient of 19 mm of Hg. There is no LVOT obstruction. No hemodynamically significant valvular aortic stenosis. No aortic regurgitation is present. Tricuspid Valve There is no tricuspid stenosis. There is a moderate amount of tricuspid regurgitation. There is moderate to severe pulmonary hypertension by echo. RVSP is 59 to 64 mm of Hg , with RA mean of 5 to 10. Pulmonic Valve There is no pulmonic valvular stenosis. There is no pulmonic valvular regurgitation. Great Vessels The aortic root is not well visualized but is probably normal size. The inferior vena cava appeared normal and decreased > 50% with respiration (RAP 5-10 mmHg). Effusions There is no pericardial effusion. : JAXON MEDLEY > Becky Mann
[2018-06-29 19:29] LABS: ARTERIAL BLOOD FIO2 2LNC; ARTERIAL BLOOD PCO2 69.6 mmHg (35-45)
[2018-06-29] MEDS: DIAZEPAM INJ 10 MG/2 ML DISP.SYRIN IV PRN (20:21)
[2018-06-29] MEDS: GUAIFENESIN SYRP 200 MG/10 ML UDC PO PRN (20:21)
--- NOTE | 2018-06-29 21:12 | PROGRESS NOTE E ---
Progress Note NAME: MITCHEL LANZA : 1950 AGE: 67Y DATE: 06/29/2018 ROOM: 534 SUBJECTIVE: The patient is lying in bed. She states that she feels about the same as she did yesterday. The patient was found to have significant tachypnea. Therefore, did order a stat chest x-ray, chemistry, CBC, and blood gas. The patient's chest x-ray was clear and the patient's chemistries were essentially unremarkable. The patient did have a mild white count which was consistent with her steroids. No fevers. The patient has been unable to produce any sputum throughout the day. Her sputum culture actually revealed no growth, and gases are pending. The patient states that she has not had much improvement with her anxiety medication. REVIEW OF SYSTEMS: The rest of the review of systems is negative. MEDICATIONS: Reviewed. OBJECTIVE: GENERAL: The patient is a 67-year-old female who is awake and alert. She is oriented to person, place, time, and situation. She is verbal, conversational. Does appear acutely tachypneic. Does appear to be in some mild distress. VITAL SIGNS: Temperature 98.4, pulse 94, respirations 26, blood pressure 131/65, oxygen saturation is 94% on 3 liters nasal cannula. SKIN: Warm and dry, no rashes, not diaphoretic. HEENT: Pupils are reactive. Conjunctivae pink. No evidence of JVP. CVS: Heart is tachycardic. There is no rub. CHEST: Diminished. The patient does have some rhonchorous breath sounds in the upper lung gary. Symmetrical, mildly labored. ABDOMEN: Soft, nontender. EXTREMITIES: No clubbing, cyanosis, or edema. PSYCHIATRIC: The patient is quite anxious. DIAGNOSTICS/LAB VALUES: Hematology on 06/29/2018: WBC 12.4, hemoglobin 11.9, hematocrit 35.2, platelet count 313,000. Chemistry obtained on 06/29/2018: Sodium 131, potassium 5.1, chloride 91, carbon dioxide 30, BUN 33, creatinine 0.90, glucose 105, calcium 9.3, magnesium 2.4. ASSESSMENT AND PLAN: 1. CHRONIC OBSTRUCTIVE PULMONARY DISEASE EXACERBATION. Will continue steroids. BiPAP as needed. 2. BILATERAL LOWER LOBE PNEUMONIA. Possibly gram negative, given the patient's history. Will continue current antibiotic coverage of cefepime as well as Mucinex and flutter valve, and follow. 3. ACUTE ON CHRONIC HYPOXEMIC RESPIRATORY FAILURE. Continue supplemental O2. The patient actually appears to be hyperventilating. Will obtain a blood gas to help delineate this. 4. TOBACCO DEPENDENCY. Continuous. Continue as needed nicotine patch. 5. ANXIETY. The patient does have a large amount of grief, given the loss of her son unexpectedly. The patient is currently on Effexor, which may actually make this a little worse. She was started on BuSpar yesterday. Will consult Mental Health to help with this. Will also get an echocardiogram to ensure there is not an element of [place] air hunger associated with her presentation. DISPOSITION: The patient is a DO NOT INTUBATE. Pending the patient's symptomatology and diagnostic findings, will reevaluate in the a.m. Time spent on this critical care visit 35 minutes. DICTATING PHYSICIAN: JAXON MEDLEY NP [id number] PHY#: [id number] ID: [id number] JOB#: [id number] ACCT: [id number] cc: >
[2018-06-29] MEDS: MELATONIN 5 MG TABLET PO SCH (23:59)
[2018-06-30] MEDS: HEPARIN SOD (PORCINE) 5,000 UNIT/ML 1 ML SYRINGE SUBCUT SCH ×4 (00:06→22:58)
[2018-06-30] MEDS: GUAIFENESIN 600 MG TABLET.SA PO SCH ×3 (00:07→21:34)
[2018-06-30] MEDS: CEFEPIME 2 GM/D5W RTU 2 GM/50 ML RTUPB IV SCH ×3 (00:07→22:59)
[2018-06-30] MEDS: GABAPENTIN 300 MG CAPSULE PO SCH ×4 (00:07→21:34)
[2018-06-30] MEDS: FAMOTIDINE 20 MG TABLET PO SCH ×3 (00:07→21:33)
[2018-06-30] MEDS: MONTELUKAST SODIUM 10 MG TABLET PO SCH ×2 (00:07→21:33)
[2018-06-30] MEDS: BUDESONIDE/FORMOTEROL 160-4.5 MCG 60 PUFF/6 GM MDI IH SCH ×3 (00:08→21:32)
[2018-06-30] MEDS: DIAZEPAM INJ 10 MG/2 ML DISP.SYRIN IV PRN ×2 (00:29→05:11)
[2018-06-30] MEDS: IPRATROPIUM/ALBUTEROL 0.5-2.5 MG/3 ML AMPUL NEB SCH ×2 (07:47→15:28)
[2018-06-30] MEDS ORDERED: DIAZEPAM INJ 10 MG/2 ML DISP.SYRIN IV PRN (09:50)
[2018-06-30] MEDS: ASPIRIN 81 MG TABLET, ENT COATED PO SCH (10:52)
[2018-06-30] MEDS: PREDNISONE 20 MG TABLET PO SCH ×2 (10:52→17:53)
[2018-06-30] MEDS: VENLAFAXINE HCL 37.5 MG CAP.SR.24H PO SCH (10:52)
[2018-06-30] MEDS: AMLODIPINE BESYLATE 5 MG TABLET PO SCH (10:52)
[2018-06-30] MEDS: MELOXICAM 7.5 MG TABLET PO SCH (10:52)
--- NOTE | 2018-06-30 12:34 | PDOC CONSULTATION ---
Consultation Consult Date: 06/30/18 Attending physician:: JAXON MEDLEY Consult reason:: acute/chronic resp failure History of Present Illness Admission Date/PCP: 06/27/18 11:36 History of Present Illness: MITCHEL LANZA is a 67 year old female, O2 dependent presented with increasing shortness of breath long-standing history of COPD planes of cough productive of clear phlegm she denies hemoptysis her PPD is negative although she is unaware of the date she denies having any lung problems as a child she had large amounts of this passive smoke as a child as well as an adult she is self smoked 1 pack a day for 50 years and is on some stop smoking in the last week or 2. She denies any significant occupational exposure to potential respiratory toxins. She has 2 cats and recently she traveled here from [facility]. Patient has tightness in her chest sleeps on 3 pillows occasional PND rare nocturnal cough no edema she is unaware of any snoring restless sleep nocturia x1 she denies unrestful sleep or excessive daytime somnolence. Past Medical History Cardiac Medical History: Reports: Hypertension Pulmonary Medical History: Reports: Chronic Obstructive Pulmonary Disease (COPD) Denies: Intubation EENT Medical History: Reports: None Neurological Medical History: Reports: None Endocrine Medical History: Reports: None Renal/ Medical History: Reports: None Malignancy Medical History: Reports: None GI Medical History: Reports: None Musculoskeltal Medical History: Reports: Arthritis Skin Medical History: Reports: None Psychiatric Medical History: Reports: Depression, General Anxiety Disorder Traumatic Medical History: Reports: None Hematology: Reports: None Infectious Medical History: Reports: None Past Surgical History Past Surgical History: Reports: Section Social History Information Source: Patient, [facility] Records Lives with: Family Smoking Status: Current Every Day Smoker Cigarettes Packs Per Day: 0.5 Number of Years Smokin Frequency of Alcohol Use: Occasional Hx Recreational Drug Use: No Drugs: None Hx Prescription Drug Abuse: No Do you have pets?: Yes Have you had any respiratory illnesses as a child?: No Have you been exposed to any sick contacts recently?: No Have you had any recent respiratory illnesses?: Yes Have you travelled outside of [place] in the past 12 months?: Yes - Advance Directive Resuscitation Status: Do Not Intubate Family History Family History: Hypertension, Malignancy Parental Family History Reviewed: Yes Children Family History Reviewed: Yes Sibling(s) Family History Reviewed.: Yes Medication/Allergy Home Medications: Albuterol Sulfate [Proair Hfa Inhalation Aerosol 8.5 gm Mdi] 1 puff IH Q4HP PRN 06/26/18 Amlodipine Besylate [Norvasc 5 mg Tablet] 5 mg PO DAILY 06/26/18 Aspirin [Ecotrin 81 mg EC Tablet] 81 mg PO DAILY 06/26/18 Budesonide/Formoterol Fumarate [Symbicort Hfa 160-4.5 Mcg Inhaler 6 gm] 1 puff IH Q12 06/26/18 Gabapentin [Neurontin 300 mg Capsule] 300 mg PO Q8 06/26/18 Melatonin [Melatonin 5 mg Tablet] 10 mg PO QHS 06/26/18 Meloxicam [Mobic] 7.5 mg PO DAILY 06/26/18 Prednisone [Deltasone 20 mg Tablet] 40 mg PO DAILY 06/26/18 Venlafaxine HCl ER [Effexor Xr 37.5 mg Cap.sr] 37.5 mg PO DAILY 06/26/18 Allergies/Adverse Reactions: Penicillins Allergy (Verified 06/26/18 15:54) Review of Systems Constitutional: PRESENT: fatigue, weakness. ABSENT: anorexia, headache(s), night sweats, weight gain, weight loss Eyes: ABSENT: visual disturbances Ears: ABSENT: hearing changes Nose, Mouth, and Throat: ABSENT: mouth pain Cardiovascular: PRESENT: dyspnea on exertion, orthropnea. ABSENT: palpitations Respiratory: PRESENT: cough, dyspnea. ABSENT: hemoptysis Gastrointestinal: ABSENT: abdominal pain, bloating, coffee ground emesis, dysphagia, heartburn, hematemesis, hematochezia, melena Genitourinary: ABSENT: dysuria, hematuria Musculoskeletal: ABSENT: deformity, joint swelling Integumentary: ABSENT: pruritus, rash Neurological: ABSENT: abnormal gait, abnormal movements, abnormal speech, confusion, focal weakness, frequent falls, lack of coordination, memory loss, syncope Psychiatric: ABSENT: hallucinations, homidical ideation, suicidal ideation Endocrine: ABSENT: cold intolerance, heat intolerance, polydipsia, polyuria Hematologic/Lymphatic: ABSENT: lymphadenopathy Allergic/Immunologic: ABSENT: seasonal rhinorrhea Physical Exam Vital Signs: Temp Pulse Resp BP Pulse Ox 97.8 F 79 20 125/75 99 06/30/18 08:27 06/30/18 08:27 06/30/18 08:27 06/30/18 08:27 06/30/18 08:27 Intake & Output 06/29/18 06/30/18 07/01/18 06:59 06:59 06:59 Intake Total 682 896 Balance 682 896 General appearance: PRESENT: no acute distress, cooperative, disheveled, well- developed, well-nourished Head exam: PRESENT: atraumatic Eye exam: PRESENT: conjunctiva pale, EOMI. ABSENT: nystagmus, scleral icterus Mouth exam: PRESENT: dry mucosa, neck supple, tongue midline Teeth exam: PRESENT: other - Upper plate Neck exam: ABSENT: carotid bruit, JVD, lymphadenopathy, thyromegaly, tracheal deviation, tracheostomy Respiratory exam: PRESENT: decreased breath sounds, prolonged expiratory phas, rales, rhonchi, unlabored, wheezes. ABSENT: retraction, stridor, tachypnea Cardiovascular exam: PRESENT: RRR, +S1, +S2 Pulses: PRESENT: normal radial pulses GI/Abdominal exam: PRESENT: soft. ABSENT: tenderness Extremities exam: ABSENT: calf tenderness, clubbing, joint swelling, pedal edema Musculoskeletal exam: ABSENT: deformity, dislocation Neurological exam: PRESENT: alert, awake Psychiatric exam: PRESENT: appropriate affect Skin exam: PRESENT: dry, warm Results Laboratory Results: 06/29/18 10:59 06/29/18 10:59 06/29/18 06/29/18 06/29/18 10:59 10:59 18:55 WBC 12.4 H RBC 3.93 Hgb 11.9 L Hct 35.2 L MCV 90 MCH 30.4 MCHC 33.9 RDW 14.6 H Plt Count 313 Carbonic Acid 2.09 H HCO3/H2CO3 Ratio 16:1 ABG pH 7.30 L ABG pCO2 69.6 H* ABG pO2 93.1 ABG HCO3 33.6 H ABG O2 Saturation 96.1 ABG Base Excess 5.1 FiO2 2LNC Sodium 131.0 L Potassium 5.1 H Chloride 91 L Carbon Dioxide 30 Anion Gap 10 BUN 33 H Creatinine 0.90 Est GFR ( Amer) > 60 Est GFR (Non-Af Amer) > 60 Glucose 105 Calcium 9.3 Magnesium 2.3 Total Bilirubin 0.4 AST 25 ALT 17 Alkaline Phosphatase 62 Total Protein 5.5 L Albumin 3.2 L Impressions: Chest/Abdomen CTA 06/26/18 00:00 IMPRESSION: Negative for pulmonary embolus, thoracic aortic aneurysm, or dissection. Groundglass opacities bilaterally with nodular/reticulonodular changes suggestive of bilateral pneumonitis. Recommend follow-up to ensure resolution. Please refer to below Fleischner Society criteria for further evaluation of the nodular component. Atheromatous change and ectasia of the ascending thoracic aorta. Coronary artery calcification. Probable hepatic cyst/hemangioma. Partial visualization of a left renal cyst. 2017 Fleischner Society Recommendations for Multiple Solid Lung Nodules Follow-Up base on size (average of long- and short-axis diameters). Use most suspicious nodule for followup. Nodule Size <6 mm Low-Risk Patient: No routine follow-up Nodule Size <6 mm High-Risk Patient: Optional CT at 12 months Nodule Size 6-8 mm Low-Risk Patient: CT at 3-[address] at 18-24 months Nodule Size 6-8 mm High-Risk Patient: CT at 3-6 months then at 18-24 months Nodule Size (mm) >8 Low-Risk Patient: CT at 3-6 months, then consider CT at 18-24 months Nodule Size (mm) >8 High-Risk Patient: CT at 3-6 months, then at 18-24 months TECHNICAL DOCUMENTATION: Quality ID # [id number]: Final reports with documentation of one or more dose reduction techniques (e.g., Automated exposure control, adjustment of the mA and/or kV according to patient size, use of iterative reconstruction technique) copyright 2011 [employer]- All Rights Reserved Chest X-Ray 06/29/18 00:00 IMPRESSION: NO ACUTE RADIOGRAPHIC FINDING IN THE CHEST. Assessment & Plan - Diagnosis (1) Acute respiratory failure with hypoxia Is this a current diagnosis for this admission?: Yes Plan: Patient displays hypercapnia as well as hypoxia BiPAP whenever she is sleeping (2) COPD exacerbation Is this a current diagnosis for this admission?: Yes Plan: Consider discontinuing Singulair and Symbicort at nebulized budesonide if necessary Generic Name Dose Route Start Last Admin Trade Name Freq PRN Reason Stop Dose Admin Budesonide/Formoterol Fumarate 1 puff 06/27/18 22:00 06/30/18 10:53 Symbicort Hfa 160-4.5 Mcg Inhaler 6 Gm IH 07/27/18 21:59 1 inhaler Q12 STEFANIE Levalbuterol HCl 1.25 mg 06/26/18 16:03 06/29/18 12:39 Xopenex Neb 1.25 Mg/3 Ml Ampul NEB 07/26/18 16:02 1.25 mg RTQ4HP PRN SHORTNESS OF BREATH Albuterol/Ipratropium 3 ml 06/27/18 00:00 06/30/18 07:47 Duoneb 3 Ml Ampul NEB 07/27/18 00:00 3 ml RTQ8 [facility] Prednisone 20 mg 06/30/18 10:00 06/30/18 10:52 Deltasone 20 Mg Tablet PO 07/30/18 09:59 20 mg BID STEFANIE Diazepam 5 mg 06/30/18 09:50 Valium Inj 10 Mg/2 Ml Disp.Syrin IV 07/07/18 09:49 Q8HP PRN ANXIETY/AGITATION Montelukast Sodium 10 mg 06/28/18 22:00 06/30/18 00:07 Singulair 10 Mg Tablet PO 07/28/18 21:59 10 mg QHS [facility] Influenza Virus Vaccine Quadrival 0.5 ml 06/26/18 16:50 Fluarix Adlt Quad Vac 0.5 Ml Syr IM 07/26/18 16:49 .DISCHARGE PRN THIS MED IS NOT "PRN" (3) Tobacco abuse Is this a current diagnosis for this admission?: Yes
[2018-06-30] MEDS: BUSPIRONE HCL 10 MG TABLET PO SCH ×2 (14:24→23:03)
--- NOTE | 2018-06-30 19:12 | PROGRESS NOTE E ---
Progress Note NAME: MITCHEL LANZA : 1950 AGE: 67Y DATE: 06/30/2018 ROOM: 534 SUBJECTIVE: The patient is lying in bed. The patient states she feels a little better today. The patient did wear the BiPAP overnight. The patient denies any nausea, vomiting, diarrhea. The patient states her shortness of breath is at baseline. The patient has been afebrile. Her blood pressure has been in acceptable range. BRIEF HISTORY: The patient is a 67-year-old female with a past medical history of oxygen dependent COPD. The patient presented to the emergency department with a chief complaint of shortness of breath. Apparently the patient had a sudden loss of her son in [place] approximately a month or so ago. The patient was so devastated by this she did move to [place]. The patient has been having difficulty with shortness of breath since the relocation, which has gotten acutely worse. The patient was admitted for COPD exacerbation, which has been very difficult to manage given that the patient also has absolute panic at times. The patient did have a CTA, which was suggestive of a bilateral pneumonitis, covered the patient with cefepime. The patient also has been found to be hypercapnic but does not like to comply with the BiPAP. For the patient's anxiety she was started on BuSpar. However, this was discontinued overnight and she was put on valium every 4 hours. I am attempting to wean the patient from benzodiazepines given that this is not ideal for oxygen dependent COPD at heavy doses. I have also consulted psych to help with this patient given that she is dealing with a new grief. I did do an echo given the patient's shortness of breath as well as recent tragic loss, but there is no evidence of Takotsubo, but does show evidence of moderate to severe pulmonary hypertension. REVIEW OF SYSTEMS: The rest of her review of systems is negative. MEDICATIONS: Have been reviewed. OBJECTIVE: GENERAL: The patient is a 67-year-old female who is awake, alert. She is oriented to person, time, place, situation. She is verbal, conversational. She does not appear to be distressed. VITAL SIGNS: Temperature is 97.4, pulse 80, respirations 20, blood pressure is 133/79, oxygen saturation is 98% on 30% FiO2 on BiPAP. SKIN: Warm and dry. No rash. She is not diaphoretic. HEENT: Pupils are reactive. No evidence of JVP. CARDIOVASCULAR: Heart is regular, no rub. CHEST: The patient does have expiratory wheezes in upper lung gary, some rhonchorous sounds in the left lung field. Symmetrical, unlabored at this time. ABDOMEN: Soft, nontender. EXTREMITIES: No clubbing, cyanosis, or edema. PSYCHIATRIC: The patient is still quite anxious. DIAGNOSTICS: Lab values are as follows - Hematology obtained on 06/29/2018; WBCs were 12.4, hemoglobin is 11.9, hematocrit is 35.2, platelet count is 313,000. Chemistry obtained on 06/29/2018; sodium is 131, potassium 5.1, chloride is 91, carbon dioxide 30, BUN 33, creatinine is 0.90, glucose 105, calcium is 9.3, magnesium is 2.3, bilirubin is 0.4, AST 25, ALT is 17, alk-phos 62, total protein is 5.5, albumin 3.2. IMPRESSION AND PLAN: 1. CHRONIC OBSTRUCTIVE PULMONARY DISEASE EXACERBATION. Will continue steroids, but will begin to wean today as this may be ratcheting up the patient's anxiety. Continue to encourage BiPAP as well. 2. BILATERAL LOWER LOBE PNEUMONIA, POSSIBLY GRAM-NEGATIVE GIVEN THE PATIENT'S HISTORY. Will continue current antibiotic coverage as well as Mucinex, flutter valve, and follow. 3. ACUTE ON CHRONIC HYPOXEMIC AND HYPERCAPNIC RESPIRATORY FAILURE. Continue supplement O2 to keep sats at 88 to 92%. Additionally will add BiPAP when resting. Will consult pulmonology given the patient's hypercapnia. 4. TOBACCO DEPENDENCY CONTINUOUS. Continue p.r.n. nicotine patch. 5. ANXIETY WITH PANIC. The patient has a large amount of grief given the loss of her son unexpectedly. The patient is currently on Effexor, which I feel may be making this a little worse. She was started on BuSpar and seemed to have minimal improvement with that. However, it was discontinued overnight and the patient was put on every 4 hours valium. I am attempting to get the patient off benzodiazepines and, therefore, will again wean these today. Do appreciate mental health's help with this to help through this. 6. MODERATE TO SEVERE PULMONARY HYPERTENSION. Again, I have consulted pulmonology. The patient most likely will need BiPAP versus Trilogy at home. If the patient is going to remain here permanently she should establish with the Pulmonary [facility]pertension [facility] at [facility]. CODE STATUS: The patient is a do not intubate. DISPOSITION: Depending on the patient's symptomatology and diagnostic findings will reevaluate in the a.m. TIME SPENT: On this follow up, including assessment and plan, physical examination, patient education, review of records is 35 minutes. DICTATING PHYSICIAN: JAXON MEDLEY NP [id number] PHY#: [id number] ID: [id number] JOB#: [id number] ACCT: [id number] cc: > MTDD
[2018-06-30] MEDS: MELATONIN 5 MG TABLET PO SCH (21:32)
[2018-07-01] MEDS: IPRATROPIUM/ALBUTEROL 0.5-2.5 MG/3 ML AMPUL NEB SCH ×4 (00:02→23:24)
[2018-07-01 05:09] LABS: VENOUS BLOOD BASE EXCESS 11.5 mmol/L; VENOUS BLOOD PH 7.35 (7.30-7.42)
[2018-07-01 05:17] LABS: VENOUS BLOOD PCO2 73.6 mmHg (35-63)
[2018-07-01 05:19] LABS: ABSOLUTE LYMPHOCYTES (AUTO) 0.9 10^3/uL (0.5-4.7); ABSOLUTE MONOCYTES (AUTO) 0.9 10^3/uL (0.1-1.4); ABSOLUTE NEUT (AUTO) 7.2 10^3/uL (1.7-8.2); BASOPHILS % (AUTO) 0.5 % (0-2); HEMATOCRIT 34.4 % (36.0-47.0); HEMOGLOBIN 11.6 g/dL (12.0-15.5); LYMPHOCYTES % (AUTO) 9.5 % (13-45); MEAN CORPUSCULAR HEMOGLOBIN 30.2 pg (27.0-33.4); MEAN CORPUSCULAR HGB CONC 33.8 g/dL (32.0-36.0); MEAN CORPUSCULAR VOLUME 90 fl (80-97); MONOCYTES % (AUTO) 9.6 % (3-13); PLATELET COUNT 275 10^3/uL (150-450); RED BLOOD COUNT 3.84 10^6/uL (3.72-5.28); RED CELL DISTRIBUTION WIDTH 14.5 % (11.5-14.0); SEGMENTED NEUTROPHILS % (AUTO) 80.4 % (42-78); TOTAL CELLS COUNTED % (AUTO) 100 %; WHITE BLOOD COUNT 8.9 10^3/uL (4.0-10.5)
[2018-07-01 05:32] LABS: BLOOD UREA NITROGEN 36 mg/dL (7-20); CALCIUM 9.1 mg/dL (8.4-10.2); CARBON DIOXIDE 35 mmol/L (22-30); CHLORIDE 93 mmol/L (98-107); GLUCOSE 120 mg/dL (75-110); POTASSIUM 5.3 mmol/L (3.6-5.0); SODIUM 132.1 mmol/L (137-145)
[2018-07-01] MEDS: HEPARIN SOD (PORCINE) 5,000 UNIT/ML 1 ML SYRINGE SUBCUT SCH ×3 (05:33→22:11)
[2018-07-01] MEDS: GABAPENTIN 300 MG CAPSULE PO SCH ×3 (05:33→22:10)
[2018-07-01 05:43] LABS: ANION GAP 4 (5-19)
[2018-07-01] MEDS: ASPIRIN 81 MG TABLET, ENT COATED PO SCH (09:47)
[2018-07-01] MEDS: AMLODIPINE BESYLATE 5 MG TABLET PO SCH (09:48)
[2018-07-01] MEDS: GUAIFENESIN 600 MG TABLET.SA PO SCH ×2 (09:48→22:10)
[2018-07-01] MEDS: VENLAFAXINE HCL 37.5 MG CAP.SR.24H PO SCH (09:48)
[2018-07-01] MEDS: MELOXICAM 7.5 MG TABLET PO SCH (09:48)
[2018-07-01] MEDS: PREDNISONE 20 MG TABLET PO SCH ×2 (09:48→17:51)
[2018-07-01] MEDS: BUSPIRONE HCL 10 MG TABLET PO SCH ×2 (09:48→22:10)
[2018-07-01] MEDS: CEFEPIME 2 GM/D5W RTU 2 GM/50 ML RTUPB IV SCH ×2 (09:48→22:10)
[2018-07-01] MEDS: FAMOTIDINE 20 MG TABLET PO SCH ×2 (09:48→22:18)
[2018-07-01] MEDS: BUDESONIDE/FORMOTEROL 160-4.5 MCG 60 PUFF/6 GM MDI IH SCH ×2 (09:49→22:23)
[2018-07-01 11:18] LABS: ARTERIAL BLOOD BASE EXCESS 10.1 mmol/L; ARTERIAL BLOOD H2CO3 1.83 mmol/L (1.05-1.35); ARTERIAL BLOOD HCO3 36.9 mmol/L (20-24); ARTERIAL BLOOD O2 SATURATION 98.4 % (94-98); ARTERIAL BLOOD PCO2 60.7 mmHg (35-45); ARTERIAL BLOOD TOTAL CO2 38.8 mmol/L (21-25)
[2018-07-01 11:19] LABS: ARTERIAL BLOOD FIO2 30%
[2018-07-01] MEDS: TRAMADOL HCL 50 MG TABLET PO PRN ×2 (14:57→22:23)
--- NOTE | 2018-07-01 16:34 | PDOC PROGRESS REPORT ---
Subjective Progress Note for:: 07/01/18 Subjective:: No adverse events overnight. She had been off BiPAP most morning and asked that it be put back on about 20 minutes before I came in the room. Blood gas that was drawn at that time actually look pretty good. She was on BiPAP she actually looks quite comfortable. Reason For Visit: COPD EXACERBATION Physical Exam Vital Signs: Temp Pulse Resp BP Pulse Ox 98.2 F 79 20 135/75 H 99 07/01/18 07:45 07/01/18 15:53 07/01/18 15:53 07/01/18 07:45 07/01/18 15:53 Intake & Output 06/30/18 07/01/18 07/02/18 06:59 06:59 06:59 Intake Total 896 1057 50 Balance 896 1057 50 Weight 75 kg General appearance: PRESENT: no acute distress, cooperative, disheveled Respiratory exam: PRESENT: decreased breath sounds, symmetrical, unlabored. ABSENT: accessory muscle use, rales, rhonchi, tachypnea, wheezes Cardiovascular exam: PRESENT: RRR, +S1, +S2 Vascular exam: PRESENT: normal capillary refill GI/Abdominal exam: PRESENT: normal bowel sounds, soft. ABSENT: distended, guarding, rebound, tenderness Extremities exam: ABSENT: clubbing, pedal edema Musculoskeletal exam: PRESENT: normal inspection. ABSENT: deformity Neurological exam: PRESENT: alert, awake, oriented to person, oriented to place , oriented to time Psychiatric exam: PRESENT: appropriate affect, normal mood Skin exam: PRESENT: dry, warm Results Laboratory Results: 07/01/18 04:45 07/01/18 04:45 07/01/18 07/01/18 07/01/18 04:45 04:45 04:45 WBC 8.9 RBC 3.84 Hgb 11.6 L Hct 34.4 L MCV 90 MCH 30.2 MCHC 33.8 RDW 14.5 H Plt Count 275 Seg Neutrophils % 80.4 H Lymphocytes % 9.5 L Monocytes % 9.6 Eosinophils % 0.0 Basophils % 0.5 Absolute Neutrophils 7.2 Absolute Lymphocytes 0.9 Absolute Monocytes 0.9 Absolute Eosinophils 0.0 Absolute Basophils 0.0 Carbonic Acid HCO3/H2CO3 Ratio ABG pH ABG pCO2 ABG pO2 ABG HCO3 ABG O2 Saturation ABG Base Excess VBG pH 7.35 VBG pCO2 73.6 H* VBG HCO3 40.0 H VBG Base Excess 11.5 FiO2 Sodium 132.1 L Potassium 5.3 H Chloride 93 L Carbon Dioxide 35 H Anion Gap 4 L BUN 36 H Creatinine 0.90 Est GFR ( Amer) > 60 Est GFR (Non-Af Amer) > 60 Glucose 120 H Calcium 9.1 Magnesium 2.5 H 07/01/18 10:55 WBC RBC Hgb Hct MCV MCH MCHC RDW Plt Count Seg Neutrophils % Lymphocytes % Monocytes % Eosinophils % Basophils % Absolute Neutrophils Absolute Lymphocytes Absolute Monocytes Absolute Eosinophils Absolute Basophils Carbonic Acid 1.83 H HCO3/H2CO3 Ratio 20:1 ABG pH 7.40 ABG pCO2 60.7 H ABG pO2 127.0 H ABG HCO3 36.9 H ABG O2 Saturation 98.4 H ABG Base Excess 10.1 VBG pH VBG pCO2 VBG HCO3 VBG Base Excess FiO2 30% Sodium Potassium Chloride Carbon Dioxide Anion Gap BUN Creatinine Est GFR ( Amer) Est GFR (Non-Af Amer) Glucose Calcium Magnesium Impressions: Chest/Abdomen CTA 06/26/18 00:00 IMPRESSION: Negative for pulmonary embolus, thoracic aortic aneurysm, or dissection. Groundglass opacities bilaterally with nodular/reticulonodular changes suggestive of bilateral pneumonitis. Recommend follow-up to ensure resolution. Please refer to below Fleischner Society criteria for further evaluation of the nodular component. Atheromatous change and ectasia of the ascending thoracic aorta. Coronary artery calcification. Probable hepatic cyst/hemangioma. Partial visualization of a left renal cyst. 2017 Fleischner Society Recommendations for Multiple Solid Lung Nodules Follow-Up base on size (average of long- and short-axis diameters). Use most suspicious nodule for followup. Nodule Size <6 mm Low-Risk Patient: No routine follow-up Nodule Size <6 mm High-Risk Patient: Optional CT at 12 months Nodule Size 6-8 mm Low-Risk Patient: CT at 3-[address] at 18-24 months Nodule Size 6-8 mm High-Risk Patient: CT at 3-6 months then at 18-24 months Nodule Size (mm) >8 Low-Risk Patient: CT at 3-6 months, then consider CT at 18-24 months Nodule Size (mm) >8 High-Risk Patient: CT at 3-6 months, then at 18-24 months TECHNICAL DOCUMENTATION: Quality ID # 436: Final reports with documentation of one or more dose reduction techniques (e.g., Automated exposure control, adjustment of the mA and/or kV according to patient size, use of iterative reconstruction technique) copyright 2011 [employer]- All Rights Reserved Chest X-Ray 06/29/18 00:00 IMPRESSION: NO ACUTE RADIOGRAPHIC FINDING IN THE CHEST. Assessment & Plan - Diagnosis (1) Acute respiratory failure with hypoxia Is this a current diagnosis for this admission?: Yes Plan: Were taking her back off BiPAP and are encouraging her to stay off her as long as possible. I think at great deal of her shortness of breath is anxiety. She apparently had a traumatic event not long before she came here. (2) COPD exacerbation Is this a current diagnosis for this admission?: Yes Plan: This seems resolved. We will de-escalating her steroids. (3) Atypical chest pain Is this a current diagnosis for this admission?: Yes Plan: Resolved - Time Time Spent with patient: 15-24 minutes
[2018-07-01] MEDS: MELATONIN 5 MG TABLET PO SCH (22:10)
[2018-07-01] MEDS: MONTELUKAST SODIUM 10 MG TABLET PO SCH (22:10)
[2018-07-02 05:45] LABS: BLOOD UREA NITROGEN 33 mg/dL (7-20); CALCIUM 8.8 mg/dL (8.4-10.2); GLUCOSE 117 mg/dL (75-110); POTASSIUM 5.9 mmol/L (3.6-5.0)
[2018-07-02 05:51] LABS: ANION GAP 5 (5-19); CARBON DIOXIDE 34 mmol/L (22-30); CHLORIDE 93 mmol/L (98-107); SODIUM 131.6 mmol/L (137-145)
[2018-07-02] MEDS: GABAPENTIN 300 MG CAPSULE PO SCH ×3 (06:10→21:41)
[2018-07-02] MEDS: HEPARIN SOD (PORCINE) 5,000 UNIT/ML 1 ML SYRINGE SUBCUT SCH ×3 (06:11→21:42)
[2018-07-02] MEDS: IPRATROPIUM/ALBUTEROL 0.5-2.5 MG/3 ML AMPUL NEB SCH ×3 (07:56→23:59)
[2018-07-02] MEDS: ASPIRIN 81 MG TABLET, ENT COATED PO SCH (10:24)
[2018-07-02] MEDS: PREDNISONE 20 MG TABLET PO SCH ×2 (10:24→17:25)
[2018-07-02] MEDS: BUSPIRONE HCL 10 MG TABLET PO SCH ×2 (10:24→21:41)
[2018-07-02] MEDS: VENLAFAXINE HCL 37.5 MG CAP.SR.24H PO SCH (10:25)
[2018-07-02] MEDS: MELOXICAM 7.5 MG TABLET PO SCH (10:25)
[2018-07-02] MEDS: CEFEPIME 2 GM/D5W RTU 2 GM/50 ML RTUPB IV SCH ×2 (10:25→21:41)
[2018-07-02] MEDS: GUAIFENESIN 600 MG TABLET.SA PO SCH ×2 (10:25→21:28)
[2018-07-02] MEDS: FAMOTIDINE 20 MG TABLET PO SCH ×2 (10:26→21:41)
[2018-07-02] MEDS: BUDESONIDE/FORMOTEROL 160-4.5 MCG 60 PUFF/6 GM MDI IH SCH ×2 (10:26→22:00)
[2018-07-02] MEDS: AMLODIPINE BESYLATE 5 MG TABLET PO SCH (10:26)
[2018-07-02] MEDS: GUAIFENESIN SYRP 200 MG/10 ML UDC PO PRN (17:28)
--- NOTE | 2018-07-02 19:04 | PDOC PROGRESS REPORT ---
Subjective Progress Note for:: 07/02/18 Subjective:: No adverse events overnight. She was on the nasal cannula whenever I saw her today. The breathing was fairly comfortable. She said that she was on oxygen when she was living up in [place], and she thinks she did not bring her oxygen equipment with her whenever she came down here. Pain she says that she is not sure how long she is going to be in this area, but she anticipates being here for some time. Reason For Visit: COPD EXACERBATION Physical Exam Vital Signs: Temp Pulse Resp BP Pulse Ox 98.7 F 95 18 142/72 H 97 07/02/18 16:29 07/02/18 16:29 07/02/18 16:29 07/02/18 16:29 07/02/18 16:29 Intake & Output 07/01/18 07/02/18 07/03/18 06:59 06:59 06:59 Intake Total 1057 2203 878 Balance 1057 2203 878 Weight 75 kg 76.6 kg General appearance: PRESENT: no acute distress, cooperative, disheveled Respiratory exam: PRESENT: decreased breath sounds, symmetrical, unlabored. ABSENT: accessory muscle use, rales, rhonchi, tachypnea, wheezes Cardiovascular exam: PRESENT: RRR, +S1, +S2 Vascular exam: PRESENT: normal capillary refill GI/Abdominal exam: PRESENT: normal bowel sounds, soft. ABSENT: distended, guarding, rebound, tenderness Extremities exam: ABSENT: clubbing, pedal edema Musculoskeletal exam: PRESENT: normal inspection. ABSENT: deformity Neurological exam: PRESENT: alert, awake, oriented to person, oriented to place , oriented to time Psychiatric exam: PRESENT: appropriate affect, normal mood Skin exam: PRESENT: dry, warm Results Laboratory Results: 07/01/18 04:45 07/02/18 04:26 07/02/18 04:26 Sodium 131.6 L Potassium 5.9 H Chloride 93 L Carbon Dioxide 34 H Anion Gap 5 BUN 33 H Creatinine 0.85 Est GFR ( Amer) > 60 Est GFR (Non-Af Amer) > 60 Glucose 117 H Calcium 8.8 Impressions: Chest/Abdomen CTA 06/26/18 00:00 IMPRESSION: Negative for pulmonary embolus, thoracic aortic aneurysm, or dissection. Groundglass opacities bilaterally with nodular/reticulonodular changes suggestive of bilateral pneumonitis. Recommend follow-up to ensure resolution. Please refer to below Fleischner Society criteria for further evaluation of the nodular component. Atheromatous change and ectasia of the ascending thoracic aorta. Coronary artery calcification. Probable hepatic cyst/hemangioma. Partial visualization of a left renal cyst. 2017 Fleischner Society Recommendations for Multiple Solid Lung Nodules Follow-Up base on size (average of long- and short-axis diameters). Use most suspicious nodule for followup. Nodule Size <6 mm Low-Risk Patient: No routine follow-up Nodule Size <6 mm High-Risk Patient: Optional CT at 12 months Nodule Size 6-8 mm Low-Risk Patient: CT at 3-[address] at 18-24 months Nodule Size 6-8 mm High-Risk Patient: CT at 3-6 months then at 18-24 months Nodule Size (mm) >8 Low-Risk Patient: CT at 3-6 months, then consider CT at 18-24 months Nodule Size (mm) >8 High-Risk Patient: CT at 3-6 months, then at 18-24 months TECHNICAL DOCUMENTATION: Quality ID # 436: Final reports with documentation of one or more dose reduction techniques (e.g., Automated exposure control, adjustment of the mA and/or kV according to patient size, use of iterative reconstruction technique) copyright 2011 [employer]- All Rights Reserved Chest X-Ray 06/29/18 00:00 IMPRESSION: NO ACUTE RADIOGRAPHIC FINDING IN THE CHEST. Assessment & Plan - Diagnosis (1) Acute respiratory failure with hypoxia Is this a current diagnosis for this admission?: Yes Plan: We are encouraging her to stay off BiPAP as long as possible. I think at great deal of her shortness of breath is anxiety. She apparently had a traumatic event not long before she came here. She apparently also has some chronic respiratory failure and we need to try to figure out whether or not we can get oxygen for her while she is here. (2) COPD exacerbation Is this a current diagnosis for this admission?: Yes Plan: This seems resolved. We will de-escalate her steroids. (3) Atypical chest pain Is this a current diagnosis for this admission?: Yes Plan: Resolved (4) Hyperkalemia Is this a current diagnosis for this admission?: Yes Plan: I am not sure why her potassium is increasing. She is not getting any exogenous potassium that I can determine in the chart, and I do not believe any of her current medications would cause her to retain potassium. If it continues to go up we will give her some Kayexalate. - Time Time Spent with patient: 25-34 minutes
[2018-07-02] MEDS: MONTELUKAST SODIUM 10 MG TABLET PO SCH (21:41)
[2018-07-02] MEDS: MELATONIN 5 MG TABLET PO SCH (21:41)
[2018-07-03] MEDS: HEPARIN SOD (PORCINE) 5,000 UNIT/ML 1 ML SYRINGE SUBCUT SCH ×3 (05:53→23:28)
[2018-07-03] MEDS: GABAPENTIN 300 MG CAPSULE PO SCH ×3 (05:54→23:36)
[2018-07-03] MEDS: FAMOTIDINE 20 MG TABLET PO SCH ×2 (09:28→23:36)
[2018-07-03] MEDS: VENLAFAXINE HCL 37.5 MG CAP.SR.24H PO SCH (09:28)
[2018-07-03] MEDS: PREDNISONE 20 MG TABLET PO SCH ×2 (09:28→23:36)
[2018-07-03] MEDS: MELOXICAM 7.5 MG TABLET PO SCH (09:28)
[2018-07-03] MEDS: GUAIFENESIN 600 MG TABLET.SA PO SCH ×2 (09:28→23:35)
[2018-07-03] MEDS: BUSPIRONE HCL 10 MG TABLET PO SCH ×2 (09:29→23:35)
[2018-07-03] MEDS: ASPIRIN 81 MG TABLET, ENT COATED PO SCH (09:29)
[2018-07-03] MEDS: AMLODIPINE BESYLATE 5 MG TABLET PO SCH (09:29)
[2018-07-03] MEDS: BUDESONIDE/FORMOTEROL 160-4.5 MCG 60 PUFF/6 GM MDI IH SCH ×2 (09:29→23:35)
[2018-07-03] MEDS: IPRATROPIUM/ALBUTEROL 0.5-2.5 MG/3 ML AMPUL NEB SCH ×2 (09:48→15:58)
[2018-07-03] MEDS: CEFEPIME 2 GM/D5W RTU 2 GM/50 ML RTUPB IV SCH ×2 (10:06→23:28)
--- NOTE | 2018-07-03 20:17 | PDOC DISCHARGE SUMMARY ---
General - Admit/Disc Date/PCP Admission Date/Primary Care Provider: 06/27/18 11:36 Discharge Date: 07/03/18 - Discharge Diagnosis (1) Acute respiratory failure with hypoxia Is this a current diagnosis for this admission?: Yes Summary: This is actually acute on chronic respiratory failure with hypoxia. She came down here from [place] and did not bring her oxygen with her and is planning on being here for some time. We have arranged for her to get home oxygen. A large component of this is anxiety. We have also put her on some BuSpar and that seems to help. (2) COPD exacerbation Is this a current diagnosis for this admission?: Yes Summary: She was treated with prednisone as an outpatient which was continued as an inpatient. I do not think she needs any more prednisone and I think her exacerbation has resolved. (3) Atypical chest pain Is this a current diagnosis for this admission?: Yes Summary: Again, this was attributed to anxiety as she had no evidence of any coronary ischemia. (4) Hyperkalemia Is this a current diagnosis for this admission?: Yes Summary: This is suspected to be pseudohyperkalemia because she is not been receiving exogenous potassium, she is not on any medications that would cause it, she is asymptomatic without any clinical signs of hyperkalemia. She could possibly have had some increased tissue catabolism from her steroids, but those have been discontinued. - Additional Information Resuscitation Status: Do Not Intubate Discharge Diet: Cardiac Discharge Activity: Activity As Tolerated, Slowly Increase Activity Prescriptions: Buspirone HCl [Buspar 10 mg Tablet] 10 mg PO Q12 #60 tablet Home Medications: Albuterol Sulfate [Proair HFA Inhalation Aerosol 8.5 gm MDI] 1 puff IH Q4HP PRN 06/26/18 Amlodipine Besylate [Norvasc 5 mg Tablet] 5 mg PO DAILY 06/26/18 Aspirin [Ecotrin 81 mg EC Tablet] 81 mg PO DAILY 06/26/18 Budesonide/Formoterol Fumarate [Symbicort HFA 160-4.5 mcg Inhaler 6 gm] 1 puff IH Q12 06/26/18 Gabapentin [Neurontin 300 mg Capsule] 300 mg PO Q8 06/26/18 Melatonin [Melatonin 5 mg Tablet] 10 mg PO QHS 06/26/18 Meloxicam [Mobic] 7.5 mg PO DAILY 06/26/18 Venlafaxine HCl ER [Effexor Xr 37.5 mg Cap.sr] 37.5 mg PO DAILY 06/26/18 Buspirone HCl [Buspar 10 mg Tablet] 10 mg PO Q12 #60 tablet 07/03/18 History of Present Illness History of Present Illness: MITCHEL LANZA is a 67 year old female with a past medical history significant for hypertension, depression/anxiety, arthritis, and COPD who presented to the emergency department today with a complaint of 2 weeks of progressively worsening dyspnea. She reports that she saw an urgent care 1 week ago and was placed on doxycycline and prednisone. She has completed the course of therapy but has dramatically worsened in the last 48 hours. She now reports chest wall pain associated with deep breath, nonproductive cough, fatigue, air hunger/anxiety, and dyspnea while at rest. Evaluation in the emergency department found tachycardia (HR 110-120), tachypnea (RR 28), Sp02 91% on RA, accessory muscle use, tripoding, leukocytosis (WBC 14.3), normal troponin, EKG demonstrating NSR, CXR demonstrated RLL infiltrate. The patient was referred to the hospitalist service for admission and management of acute respiratory failure secondary to COPD exacerbation. Hospital Course Hospital Course: She received treatment for COPD, and despite an improvement in her breath sounds she continued to claim to be short of breath despite excellent indicators of oxygenation. She also appeared to be quite anxious. It was determined that she had a traumatic event that happened before she came down here, the loss of her son, it was felt like that was contributing a lot to her anxiety. We were able to convince her to spend longer periods of time off BiPAP and on supplemental O2 per nasal cannula and she did just fine. She was supposed to be on oxygen down here but when she came down here from [place] she did not bring her oxygen equipment with her. We have arranged for her to have oxygen at home here. We have also given her prescription for BuSpar which she said helped with her anxiety symptoms. Her examination was reassuring and she was discharged today in good condition. We have encouraged her to quickly establish care with a local primary care provider while she is here. Physical Exam Vital Signs: Temp Pulse Resp BP Pulse Ox 98.5 F 82 18 121/63 96 07/03/18 16:45 07/03/18 16:45 07/03/18 16:45 07/03/18 16:45 07/03/18 16:45 Intake & Output 07/02/18 07/03/18 07/04/18 06:59 06:59 06:59 Intake Total 2203 1378 907 Balance 2203 1378 907 Weight 76.6 kg 76.4 kg General appearance: PRESENT: no acute distress, cooperative, disheveled Respiratory exam: PRESENT: decreased breath sounds, symmetrical, unlabored. ABSENT: accessory muscle use, rales, rhonchi, tachypnea, wheezes Cardiovascular exam: PRESENT: RRR, +S1, +S2 Vascular exam: PRESENT: normal capillary refill GI/Abdominal exam: PRESENT: normal bowel sounds, soft. ABSENT: distended, guarding, rebound, tenderness Extremities exam: ABSENT: clubbing, pedal edema Musculoskeletal exam: PRESENT: normal inspection. ABSENT: deformity Neurological exam: PRESENT: alert, awake, oriented to person, oriented to place , oriented to time Psychiatric exam: PRESENT: appropriate affect, normal mood Skin exam: PRESENT: dry, warm Results Laboratory Results: 07/01/18 04:45 07/02/18 04:26 Impressions: Chest/Abdomen CTA 06/26/18 00:00 IMPRESSION: Negative for pulmonary embolus, thoracic aortic aneurysm, or dissection. Groundglass opacities bilaterally with nodular/reticulonodular changes suggestive of bilateral pneumonitis. Recommend follow-up to ensure resolution. Please refer to below Fleischner Society criteria for further evaluation of the nodular component. Atheromatous change and ectasia of the ascending thoracic aorta. Coronary artery calcification. Probable hepatic cyst/hemangioma. Partial visualization of a left renal cyst. 2017 Fleischner Society Recommendations for Multiple Solid Lung Nodules Follow-Up base on size (average of long- and short-axis diameters). Use most suspicious nodule for followup. Nodule Size <6 mm Low-Risk Patient: No routine follow-up Nodule Size <6 mm High-Risk Patient: Optional CT at 12 months Nodule Size 6-8 mm Low-Risk Patient: CT at 3-[address] at 18-24 months Nodule Size 6-8 mm High-Risk Patient: CT at 3-6 months then at 18-24 months Nodule Size (mm) >8 Low-Risk Patient: CT at 3-6 months, then consider CT at 18-24 months Nodule Size (mm) >8 High-Risk Patient: CT at 3-6 months, then at 18-24 months TECHNICAL DOCUMENTATION: Quality ID # 436: Final reports with documentation of one or more dose reduction techniques (e.g., Automated exposure control, adjustment of the mA and/or kV according to patient size, use of iterative reconstruction technique) copyright 2011 [employer]- All Rights Reserved Chest X-Ray 06/29/18 00:00 IMPRESSION: NO ACUTE RADIOGRAPHIC FINDING IN THE CHEST. Qualifiers - * PATIENT BEING DISCHARGED WITH ANY OF THE FOLLOWING DIAGNOSIS: No
[2018-07-03] MEDS: MONTELUKAST SODIUM 10 MG TABLET PO SCH (23:35)
[2018-07-03] MEDS: MELATONIN 5 MG TABLET PO SCH (23:36)
[2018-07-04] MEDS: IPRATROPIUM/ALBUTEROL 0.5-2.5 MG/3 ML AMPUL NEB SCH ×2 (00:05→08:17)
[2018-07-04] MEDS: GABAPENTIN 300 MG CAPSULE PO SCH (05:40)
[2018-07-04] MEDS: HEPARIN SOD (PORCINE) 5,000 UNIT/ML 1 ML SYRINGE SUBCUT SCH (06:49)
[2018-07-04 08:09] VITALS: BP 123/74
--- NOTE | 2018-07-06 14:40 | PSYCHOLOGICAL NOTE ---
Psych Note - Psych Note Date seen by psych provider: 06/29/18 Time seen by psych provider: 13:55 Psych Note: Reason for consult: depression Patient reports that she is "feeling lousy" because of her medical concerns currently. She reports that she has been having depression lately because her son on May 16. He was having open heart surgery at 41 years of age and did not make it through the surgery. She reports that while she is lost her mom and father they were older and is never had to deal with losing a loved one. She discloses that she has very little support. She denies ever having a mental health diagnosis. Patient is alert and orientated to person, place, time and circumstance. Mood is dysphoric with flat affect. Clinician notes patient is in having a difficult time speaking with clinician, frequently needing to stop speaking to gasp for air. Patient denies suicidal and homicidal ideation. Delusions are absent behaviors congruent with an intact reality based presentation i.e. organized and linear thought process. Eye contact is well-maintained. Conversational speech was slow and at times difficult to understand because of patient's current medical presentation. Intellectual abilities appear to be within the average range. Attention and concentration are good. Insight, judgment, impulse control are currently good. No medication recommendations at this time Bereavement Impression\\plan: Patient is cleared from acute psychiatric services. Patient discloses having depression from the recent loss of her son. She reports that it was unexpected and is the first loss that she is experienced of a loved one at a young age. Clinician provided psychoeducation on the stages of grief. She is recommended to follow-up with outpatient mental health services for grief counseling either one-on-one or group. Dr. Ceja was consulted and the care management this patient; attending physician is agreement with recommendations and disposition.
== END 2018-07-04 10:25 | disposition home health service (06) | DRG 189 ==
LOC: ER 11:48 → INTOOBSV 14:14 → EH 14:14 → OBSVTOIN 14:14 → 5 16:24 → OBSVTOIN 06-27 11:36
PROVIDERS: ADMIT Family Medicine; ATTEND Family Medicine
PROC: 5A09557 Assistance with Respiratory Ventilation, Greater than 96 Consecutive Hours, Continuous Positive Airway Pressure (ICD-10-PCS; principal; 2018-06-26)
PROC: 3E0F73Z Introduction of Anti-inflammatory into Respiratory Tract, Via Natural or Artificial Opening (ICD-10-PCS; 2018-06-26)
DX: J96.21 Acute and chronic respiratory failure with hypoxia (principal); J44.1 Chronic obstructive pulmonary disease with (acute) exacerbation; E87.5 Hyperkalemia; Z66 Do not resuscitate; R07.89 Other chest pain; F32.9 Major depressive disorder, single episode, unspecified; M19.90 Unspecified osteoarthritis, unspecified site; I10 Essential (primary) hypertension; F41.1 Generalized anxiety disorder; I77.810 Thoracic aortic ectasia; R79.1 Abnormal coagulation profile; I27.20 Pulmonary hypertension, unspecified; F17.210 Nicotine dependence, cigarettes, uncomplicated; Z91.19 Patient's noncompliance with other medical treatment and regimen; Z88.0 Allergy status to penicillin; Z79.899 Other long term (current) drug therapy; Z79.82 Long term (current) use of aspirin; Z79.52 Long term (current) use of systemic steroids; Z80.9 Family history of malignant neoplasm, unspecified; Z82.49 Family history of ischemic heart disease and other diseases of the circulatory system
CPT/HCPCS: 36415; 36600; 71045; 71275; 80048; 80053; 81001; 82550; 82553; 82803; 82962; 83605; 83735; 84484; 85025; 85027; 85379; 85610; 87040; 87070; 87205; 87804; 93005; 93010; 93306; 94640; 94660; 94799; 96361; 96365; 99285; G0378; J0692; J0744; J1644; J1956; J2060; J2920; J3360; J3490; J7030; J7512; J7620